=== PATIENT | male | born 1945 | race Caucasian/White ===

== ENCOUNTER 2016-07-03 14:19 | Emergency (ER) | payer OTHER ==
[2016-07-03 14:25] VITALS: PULSE 57; RESP 16; TEMP 97.5; O2SAT 98
[2016-07-03 14:27] VITALS: BP 156/76
--- NOTE | 2016-07-03 16:21 | UCPHY ---
H & P Time Seen by Provider: 07/03/16 15:47 Patient Type: New HPI/ROS: This patient struck his scalp against the edge of a cabinet at home shortly prior to arrival with the scalp wound. He denies any other complaints except skin pain. He describes moderate bleeding that slowed with direct pressure. ROS: He was not days. No LOC. No headache. No neck pain. No other injuries. He did not fall to the ground from the episode. 7 point ROS is otherwise negative. Past Medical/Surgical History: Dyslipidemia and BPH Smoking Status: Never smoked Physical Exam: Physical Exam Vital signs are normal. General: No acute distress HEENT: Atraumatic other than scalp lack. Eyes: Pupils equal and react to light. Extraocular motions are intact. Neck: No midline tenderness. He retains full range of motion of his neck without pain Lungs: No respiratory distress. Cardiac: Brisk capillary refill is intact throughout. Pulses are 2+ and symmetric in the affected extremity. Skin: There is a 3 cm laceration to the right parietal scalp region with no underlying bony step-off or hematoma. Subcutaneous tissues evident but no deeper structures are injured. No foreign bodies are present on direct examination. Neuro: GCS of 15. Constitutional: Initial Vital Signs Temperature (C) 36.4 C 07/03/16 14:20 Heart Rate 57 L 07/03/16 14:20 Respiratory Rate 16 07/03/16 14:20 Blood Pressure 156/76 H 07/03/16 14:20 O2 Sat (%) 98 07/03/16 14:20 O2 Delivery Mode Room Air Allergies/Adverse Reactions: azithromycin Allergy (Verified 07/03/16 14:26) moxifloxacin HCl [From Avelox] Allergy (Verified 07/03/16 14:26) Home Medications: Medication Instructions Recorded Aspirin 81mg (*) 07/03/16 Simvastatin 07/03/16 Tamsulosin HCl 07/03/16 MDM/Departure - MDM Procedures: Fidel: After verbal consent patient is treated with let solution initially followed by 1% plain lidocaine, 27 gauge needle-4 mL with good effect. Wound was scrubbed by our tech with baby shampoo and saline and then under sterile conditions using stapler place 6 fidel with good tissue approximation, hemostasis cosmesis. Patient tolerated this well. There were no complications. Medications Given: Discontinued Medications Diphtheria/Tetanus/Acell Pertussis (Boostrix) 0.5 ml IM .ONCE ONE Stop: 07/03/16 16:27 Last Admin: 07/03/16 16:27 Dose: 0.5 ml ED Course/Re-evaluation: Patient is counseled regarding wound care. Discussion: Scalp wound without evidence of significant head injury. Also no evidence of neck injury other complicating factors. - Depart Disposition: Home, Routine, Self-Care Clinical Impression: Scalp laceration Qualifiers: Encounter type: initial encounter Qualified Code(s): S01.01XA - Laceration without foreign body of scalp, initial encounter Condition: Good Instructions: Staple Care (ED) Additional Instructions: Diagnosis: Scalp laceration Plan: Keep the wound clean and dry for the next 2 days. Then clean daily with warm soapy water Return for staple removal in 7 days or so. Return sooner if he develops redness discharge or other concerns for infection. Go to the emergency department if he develops unbearable headache, confusion or other concerns. Referrals: Mikael Tovar MD [Primary Care Provider] - As per Instructions - PQRS PQRS Measurement: 134: Depression screening and followup, PRIME MD-PHQ2 (12 years and older) Over the last 2 weeks, how often have you been bothered by any of the following problems? 1. Feeling down, depressed, or hopeless? 2. Little interest or pleasure in doing things? Patient answered no to both 1 and 2 130: Documentation of medications. Reviewed all patient medications, doses, route and frequency. 226: Do you smoke? [No.] 47: 65 and older: Advanced care planning. Patient designates surrogate decision maker as spouse 51: 18 years old and older with diagnosis of COPD, spirometry performance. NA 52: 18 years old and older with COPD and symptoms of COPD or FEV1<60% predicted prescribed a B Agonist. NA
[2016-07-03] MEDS ORDERED: TDAP ADULT 0.5 ML INJ (BOOSTRIX) IM ONE (16:26)
== END 2016-07-03 16:44 | disposition home or self-care (01) ==
LOC: CED 14:19
PROC: 0HQ0XZZ Repair Scalp Skin, External Approach (ICD-10-PCS; principal; 2016-07-03)
DX: S01.01XA Laceration without foreign body of scalp, initial encounter (principal); Z23 Encounter for immunization; Y92.019 Unspecified place in single-family (private) house as the place of occurrence of the external cause; W22.03XA Walked into furniture, initial encounter
CPT/HCPCS: 12001; 90471; 90715; G0463; 12002-PO; 99203-PO

== ENCOUNTER → 2016-11-23 | Outpatient (CLI) | payer OTHER | LOC: EDSTATUS 10:28 → CIMAGING 10:28 | PROVIDERS: ATTEND Family Medicine | DX: M50.121 Cervical disc disorder at C4-C5 level with radiculopathy (principal); R20.0 Anesthesia of skin | CPT/HCPCS: 72040-PO ==

== ENCOUNTER → 2016-11-26 | Outpatient (CLI) | payer OTHER | LOC: FIMAGING 09:09 | PROVIDERS: ATTEND Family Medicine | DX: M47.812 Spondylosis without myelopathy or radiculopathy, cervical region (principal) ==

== ENCOUNTER 2016-11-30 21:27 | Emergency (ER) | payer OTHER ==
[2016-11-30] MEDS ORDERED: ASPIRIN 81 MG CHEWABLE TAB PO ONE (21:30)
--- NOTE | 2016-11-30 21:38 | CPEKG ---
Heart Rate: 56 RR Interval: 1071 P-R Interval: 208 QRSD Interval: 84 QT Interval: 424 QTC Interval: 410 P [place]: 57 QRS [place]: 45 T Wave [place]: 18 EKG Severity - NORMAL ECG - EKG Impression: SINUS RHYTHM Electronically Signed By: Kaiser Rivas 30-Nov-2016 22:58:32
[2016-11-30 21:46] VITALS: RESP 14; TEMP 98.2
[2016-11-30 21:46] LABS: % IMMATURE GRANULYOCYTES 0.4 % (0.0-1.1); ABSOLUTE IMMATURE GRANULOCYTES 0.03 10^3/uL (0.00-0.10); ADD DIFF? NO; ADD MORPH? NO; ADD SCAN? NO; ATYPICAL LYMPHOCYTE FLAG 20 (0-99); FRAGMENT RBC FLAG 0 (0-99); HEMATOCRIT 43.6 % (40.0-51.0); HEMOGLOBIN 14.6 g/dL (13.7-17.5); LEFT SHIFT FLG 0 (0-99); LIPEMIA HEMOLYSIS FLAG 80 (0-99); MEAN CELL HEMOGLOBIN 31.8 pg (27.9-34.1); MEAN CELL HEMOGLOBIN CONCENTR. 33.5 g/dL (32.4-36.7); MEAN PLATELET VOLUME 9.6 fL (8.7-11.7); PLATELET CLUMPS FLAG 0 (0-99); PLATELET COUNT 264 10^3/uL (150-400); RED BLOOD CELL COUNT 4.59 10^6/uL (4.40-6.38); RED CELL DISTRIBUTION WIDTH 13.3 % (11.5-15.2)
[2016-11-30 22:03] LABS: ANION GAP 12 mEq/L (8-16); CALCIUM 8.9 mg/dL (8.5-10.4); CARBON DIOXIDE 26 mEq/l (22-31); CHLORIDE 103 mEq/L (97-110); CREATININE 0.9 mg/dL (0.7-1.3); GLOMERULAR FILTRATION RATE > 60; GLUCOSE 119 mg/dL (70-100); POTASSIUM 4.1 mEq/L (3.5-5.2); SODIUM 141 mEq/L (134-144)
[2016-11-30 22:08] LABS: TROPONIN I < 0.012 ng/mL (0-0.034)
--- NOTE | 2016-11-30 22:29 | EDPHY ---
H & P Time Seen by Provider: 11/30/16 21:30 HPI/ROS: This patient reports left anterior chest pain that started 1 hour prior to arrival is described as achy and he has chest wall tenderness that reproduces the symptoms. He points of 2 fingers to the affected area which is around 6 to 7th rib region just left of the sternum. He notes no exacerbating factors and the pain intensity peak for of 10 but has now resolved. He does not recall having this discomfort before. And did not worsen with exertion. He had no other associated symptoms. He does report occasional dry coughs the common "fits". however his reports that she is not heard him cough all day today. She does recall any recent coughing. He notes no other associated symptoms. ROS: No fevers or chills. No significant fatigue. No other constitutional symptoms HEENT: No coryza. No sore throat. No other complaints Neuro: No headache. No numbness tingling or weakness. Pulmonary: No pleuritic pain. No dyspnea. No wheezing. He does report that he had bronchitis 2 years ago while living in [place] was prescribed albuterol inhaler for that episode. He has occasionally tried the albuterol here when he feels slightly short of breath but is not sure if he has any wheezing. He also reports he has not had any significant shortness of breath recently. Cardiovascular: No heart palpitations. No lower extremity swelling. No calf pain. No significant dyspnea on exertion. No paroxysmal nocturnal dyspnea. GI: No nausea vomiting. Endocrine: He reports that he is drinking more fluids because the hot weather but denies polyuria, blurred vision or other endocrine symptoms. No diaphoresis. Integumentary: No skin rash complete review of symptoms is otherwise negative Source: Patient Exam Limitations: No limitations - Personal History Current Tetanus Diphtheria and Acellular Pertussis (TDAP): Yes - Medical/Surgical History PMH: dyslipidemia on simvastatin Benign prostatic hypertrophy the patient had negative cardiac stress testing while in [place] but is not recall many years ago that testing occurred. Hx Asthma: Yes Hx Chronic Respiratory Disease: No Hx Diabetes: No Hx Cardiac Disease: No Hx Renal Disease: No Hx Cirrhosis: No Hx Alcoholism: No Hx HIV/AIDS: No Hx Splenectomy or Spleen Trauma: No Other PMH: APPENDECTOMY,high cholesterol,prostate problems,asthma - Family History Significant Family History: Heart disease ( his father had an AR at age 59) - Social History Smoking Status: Never smoked Alcohol Use: Rarely Drug Use: None Additional Social History: Patient & his moved to [place] urine half ago from [place] - Physical Exam Exam: Pleasant 71-year-old male appears younger than his stated age vital signs are normal General Appearance: Alert, no distress. Eyes: Pupils equal and round no pallor or injection. ENT, Mouth: Mucous membranes moist. Respiratory: There are no retractions, lungs are clear to auscultation. patient has anterior chest wall pain that seems to reproduces symptoms with no skin abnormalities at this site and no rib crepitance Cardiovascular: Regular rate and rhythm. no murmur gallop rub. No JVD. No peripheral edema no calf swelling or tenderness. Gastrointestinal: Abdomen is soft and nontender, no masses, bowel sounds normal. Neurological: GCS 15 without deficits. Skin: Warm and dry, no rashes. Musculoskeletal: Neck is supple nontender. Extremities are symmetrical, full range of motion. Psychiatric: Mood and affect are normal DIFFERENTIAL DIAGNOSIS: After history and physical exam differential diagnosis was considered for costochondritis, chest wall injury, coronary syndrome, PE, pneumonia, pneumothorax, reactive airway disease, bronchitis Constitutional: Initial Vital Signs Temperature (C) 36.8 C 11/30/16 21:42 Heart Rate 58 L 11/30/16 21:42 Respiratory Rate 14 11/30/16 21:42 Blood Pressure 152/77 H 11/30/16 21:42 O2 Sat (%) 96 11/30/16 21:42 O2 Delivery Mode Room Air Allergies/Adverse Reactions: azithromycin Allergy (Verified 11/30/16 21:39) moxifloxacin HCl [From Avelox] Allergy (Verified 11/30/16 21:39) Home Medications: Medication Instructions Recorded Aspirin 81mg (*) 07/03/16 Simvastatin 07/03/16 Tamsulosin HCl 07/03/16 Flonase Nasal [place] 11/30/16 Proair Hfa 11/30/16 Medical Decision Making - Diagnostics EKG Interpretation: 12 lead EKG performed shortly after arrival at 9:36 p.m. reveals sinus rhythm at 56 Intervals: Normal throughout [place]: Normal throughout ST segments: Normal throughout Overall assessment: normal EKG Imaging Results: Imaging Impressions Chest X-Ray 11/30/16 22:03 Impression: Nothing acute identified. chest x-ray: Normal by my interpretation except minimal spinal DJD Imaging: I viewed and interpreted images myself ED Course/Re-evaluation: monitor, aspirin 324 Patient remained stable without chest pain while here and no further symptoms while here. patient's peak flow was 580 with predicted of 550. because the patient's pain resolved he declined any analgesics while here. discussion: Patient presents with chest pain I think is chest wall and etiology. While he has cardiac risk factors of family history and dyslipidemia , he has a a entirely normal EKG and troponin with no classic cardiac symptoms. His chest wall pain is reproducible on exam. With a negative D-dimer and no risk factors or other clinical findings that are not think he has a PE. No evidence of pneumonia on chest x-ray or pneumothorax or lesions. Given a peak flow greater than predicted of not think that he has bronchitis or significant airway disease. I counseled him regarding this. Given his cardiac risk factors I did suggest follow up with Dr. Quintanilla our on- call worm packer for further evaluation as an outpatient. He understands the need to return emergency department should he developed any significant recurrence of his chest pain despite the treatment plan, onset of shortness of breath or other new symptoms. - Data Points Laboratory Results: Laboratory Results 11/30/16 21:42 11/30/16 21:42 11/30/16 11/30/16 11/30/16 21:42 21:42 21:42 WBC 6.94 10^3/uL 10^3/uL (3.80-9.50) RBC 4.59 10^6/uL 10^6/uL (4.40-6.38) Hgb 14.6 g/dL g/dL (13.7-17.5) Hct 43.6 % % (40.0-51.0) MCV 95.0 fL fL (81.5-99.8) MCH 31.8 pg pg (27.9-34.1) MCHC 33.5 g/dL g/dL (32.4-36.7) RDW 13.3 % % (11.5-15.2) Plt Count 264 10^3/uL 10^3/uL (150-400) MPV 9.6 fL fL (8.7-11.7) Neut % (Auto) 54.0 % % (39.3-74.2) Lymph % (Auto) 32.4 % % (15.0-45.0) [place] % (Auto) 11.2 % % (4.5-13.0) Eos % (Auto) 1.4 % % (0.6-7.6) Baso % (Auto) 0.6 % % (0.3-1.7) Nucleat RBC Rel Count 0.0 % % (0.0-0.2) Absolute Neuts (auto) 3.74 10^3/uL 10^3/uL (1.70-6.50) Absolute Lymphs (auto) 2.25 10^3/uL 10^3/uL (1.00-3.00) Absolute Monos (auto) 0.78 10^3/uL 10^3/uL (0.30-0.80) Absolute Eos (auto) 0.10 10^3/uL 10^3/uL (0.03-0.40) Absolute Basos (auto) 0.04 10^3/uL 10^3/uL (0.02-0.10) Absolute Nucleated RBC 0.00 10^3/uL 10^3/uL (0-0.01) Immature Gran % 0.4 % % (0.0-1.1) Immature Gran # 0.03 10^3/uL 10^3/uL (0.00-0.10) D-Dimer < 0.27 ug/mLFEU ug/mLFEU (0.00-0.50) Sodium 141 mEq/L mEq/L (134-144) Potassium 4.1 mEq/L mEq/L (3.5-5.2) Chloride 103 mEq/L mEq/L (97-110) Carbon Dioxide 26 mEq/l mEq/l (22-31) Anion Gap 12 mEq/L mEq/L (8-16) BUN 21 mg/dL mg/dL (7-23) Creatinine 0.9 mg/dL mg/dL (0.7-1.3) Estimated GFR > 60 Glucose 119 mg/dL H mg/dL (70-100) Calcium 8.9 mg/dL mg/dL (8.5-10.4) Troponin I < 0.012 ng/mL ng/mL (0-0.034) Medications Given: Discontinued Medications Aspirin (Aspirin) 324 mg PO EDNOW ONE Stop: 11/30/16 21:31 Last Admin: 11/30/16 21:49 Dose: 324 mg Departure - Departure Disposition: Home, Routine, Self-Care Clinical Impression: Chest wall pain Condition: Good Instructions: Chest Wall Pain (ED) Additional Instructions: Diagnosis: Chest wall pain Your EKG, labs and chest x-ray tonight are normal. With you pain and tenderness to the chest wall this seems to be musculoskeletal source of pain - this may be costochondritis -inflammation of the cartilage Plan: Ibuprofen and Tylenol for discomfort if needed Given yourr family history of a father with heart attack, although today's pain seems to occur be from her chest wall, you should follow up with Cardiology for further evaluation. Return to the emergency department if he have any significant worsening despite the treatment plan. Referrals: Mikael Tovar MD [Primary Care Provider] - As per Instructions Gen Quintanilla MD [Medical Doctor] - As per Instructions
[2016-11-30 22:45] VITALS: BP 109/63; PULSE 64; O2SAT 95
== END 2016-11-30 22:43 | disposition home or self-care (01) ==
LOC: CED 21:27
DX: R07.89 Other chest pain (principal); J45.909 Unspecified asthma, uncomplicated; Z79.82 Long term (current) use of aspirin
CPT/HCPCS: 71020-PO; 80048-PO; 84484-PO; 85025-PO; 85378-PO

== ENCOUNTER 2016-12-03 00:46 | Observation (INO) | payer OTHER ==
--- NOTE | 2016-12-03 01:00 | CPEKG ---
Heart Rate: 53 RR Interval: 1132 P-R Interval: 228 QRSD Interval: 76 QT Interval: 428 QTC Interval: 402 P [place]: 45 QRS [place]: 22 T Wave [place]: 11 EKG Severity - ABNORMAL ECG - EKG Impression: SINUS RHYTHM EKG Impression: FIRST DEGREE AV BLOCK EKG Impression: essentially unchanged from EKG performed approximately 51 hours ago Electronically Signed By: Des Odom 03-Dec-2016 01:39:15
--- NOTE | 2016-12-03 01:20 | EDPHY ---
H & P Time Seen by Provider: 12/03/16 00:49 HPI/ROS: CHIEF COMPLAINT: left biceps pressure sensation at 9:30 p.m. HISTORY OF PRESENT ILLNESS: this is a 71-year-old male who while watching TV developed a pressure sensation at 9:30 p.m.. It persisted until when he got here at approximately 12:45 am. His did have an take 324 mg of aspirin before the house. He is currently taking aspirin 81 mg daily. Was sitting at home when it started, nothing untoward such as a scary movie or anything alarming happen TV. The discomfort persisted. He attempted to go back to lay down to go to sleep as he had had several this week regarding his symptomatology-see below. As a consequence he would lay on his left right without any provocation or worsening of the discomfort. Nonetheless he could not sleep as he was worried about a thus he came in for evaluation. Approximately 5 days ago was seen by his PCP for tingling in the last 3 fingers of his left hand, digits 3. Four in 5. He had a plain film of the neck followed by a MRI. This showed some foraminal narrowing but no actual disc disease. Thus he was referred physical therapy. However after 2 days the left hand tingling left. At 2 days ago he was seen here in the evening on November 30. At that time he had pain in the left chest. It was noted that he had discomfort to palpation of the left costal margin and reproduce the discomfort. He has testing which included a negative troponin, negative D-dimer and negative chest x-ray. He subsequently was released. He noted the chest discomfort did not occur any longer over the ensuing 2 days. This morning, December 02 he was seen by the family physician. My review of the clinical presentation 2 days ago was done and felt to suggest indeed was costochondral discomfort and he was sent home. He had the symptoms as noted above thus he came in P: Onset while watching TV. Not worse with lying on his side Q: Pressure feeling R: Left biceps without radiation S: Mild to moderate T: Onset at 9:30 p.m. 4 hours ago He had no associated symptoms such as diaphoresis, nausea, shortness of breath, pleuritic pain, or difficulty breathing. PE/DVT risk factors: None Cardiac risk factors include: early-onset coronary disease in his father who age 59 as well as elevated cholesterol currently, on treatment. He has never smoked No diabetes No hypertension He mentions having had several stress tests in the past. I suspect this is due to family history of early-onset an early conduct cardiac with his father approximately 1979 however, no post was done REVIEW OF SYSTEMS: Constitutional: No fever, no chills. Eyes: No blurring ENT: No sore throat. Cardiovascular: See above Respiratory: See above Gastrointestinal: No nausea vomiting or diarrhea. No abdominal pain. Genitourinary: No hematuria or frequency. Musculoskeletal: No back pain. Skin: No rashes. Neurological: No headache. 10 point ROS otherwise negative Source: Patient Exam Limitations: No limitations - Medical/Surgical History Hx Asthma: Yes Hx Chronic Respiratory Disease: No Hx Diabetes: No Hx Cardiac Disease: No Hx Renal Disease: No Hx Cirrhosis: No Hx Alcoholism: No Hx HIV/AIDS: No Hx Splenectomy or Spleen Trauma: No Other PMH: APPENDECTOMY,high cholesterol,prostate problems,asthma - Family History Significant Family History: Heart disease (Father age 59 in approximately 1979, assumed to be cardiac related) - Social History Smoking Status: Never smoked Alcohol Use: None Drug Use: None - Physical Exam Exam: General Appearance: Alert, no distress. Afebrile. Normal phonation. No respiratory distress. Eyes: Pupils equal and round no pallor or injection. No icterus ENT, Mouth: Mucous membranes moist. Pharynx without erythema or exudate. TM Clear. Neck: No adenopathy. Supple. No JVD. Trachea in midline. Respiratory: There are no retractions, lungs are clear to auscultation. Chest wall: Nontender to palpation. No crepitus. Cardiovascular: Regular rate and rhythm. Abdomen: Soft and nontender, no masses, bowel sounds normal. Femoral pulses equal. Neurological: Ox3. No motor weakness. Sensation intact. Gait nl. Negative Spurling's exam. Negative symptomatology with axial load. No signs of focal motor weakness. Reflexes are symmetrical at 2+ Triceps, 2+ biceps Skin: Warm and dry, no rashes. Musculoskeletal: No joint swelling. Extremities: No edema. Homans sign negative. No cords. Psychiatric: Normal affect. Patient is oriented X 3, there is no agitation Constitutional: Initial Vital Signs Temperature (C) 36.4 C 12/03/16 00:52 Heart Rate 54 L 12/03/16 00:52 Respiratory Rate 18 12/03/16 00:52 Blood Pressure 146/74 H 12/03/16 00:52 O2 Sat (%) 96 12/03/16 00:52 O2 Delivery Mode Room Air Allergies/Adverse Reactions: azithromycin Allergy (Verified 11/30/16 21:39) moxifloxacin HCl [From Avelox] Allergy (Verified 11/30/16 21:39) Home Medications: Medication Instructions Recorded Aspirin 81mg (*) 07/03/16 Simvastatin 07/03/16 Tamsulosin HCl 07/03/16 Flonase Nasal [place] 11/30/16 Proair Hfa 11/30/16 Medical Decision Making - Diagnostics EKG Interpretation: EKG: Interpreted by me contemporaneously. Normal sinus rhythm. Heart rate 53, second degree block QTc 402 Q waves none QRS: normal STT segment: normal T Waves: Normal Summary: first-degree block with no ischemic findings. Sinus rhythm Unchanged when compared to EKG from November 30, 2 days ago. ED Course/Re-evaluation: He was already on aspirin additional high dose prior to arrival. His symptoms had resolved by the time I evaluated him. This orellana his 3rd visit to health care this week for symptoms related to arm or chest symptomatology. Thereby I consulted hospitalist at [facility] for consideration of admission. Laboratory results from 2 nights ago including the negative troponin and D- dimer reviewed Chest films reviewed on [employer] system from 2 nights ago. Normal aortic arch with crisp silhouette and aortic knob. Normal mediastinum. Initial troponin here in the ED was negative at undetectable. Patient remained asymptomatic. Case reviewed with Dr. Pierce, hospitalist harvest contractor. Patient will be transferred via ambulance to the PCU at [facility] with consideration for stress testing tomorrow morning. Differential Diagnosis: Differential diagnosis includes but is not limited to the following: ACS, myocardial infarction, pneumothorax, pleurisy, pulmonary embolus, aortic dissection, anxiety, muscle strain. Clinical exam does not support any etiology of cervical disc radiculopathy for his symptoms. His Spurling exam is negative as well as axial loading. While he is more tender to the left pectoral region than on the right it is interesting however the last 48 hours he has had no pain whatsoever when lying on right than left. His aortic shadow and lack of risk factors suggest that this is not aortic dissection. Negative D-dimer and lack of clinical findings risk factors suggest no PE or DVT here. I am a little concerned when he tells me that he no longer mows the lawn as he gets so fatigued. Evidently has been going on for some time. Thus given his range of symptoms in the course of the last week with recurrent visits, I recommend hospitalization for stress testing. - Data Points Laboratory Results: 12/03/16 01:05 Troponin I < 0.012 ng/mL ng/mL (0-0.034) Medications Given: Discontinued Medications Aspirin (Aspirin) 324 mg PO EDNOW ONE Stop: 12/03/16 01:28 Last Admin: 12/03/16 01:33 Dose: Not Given Departure - Departure Disposition: [facility]
[2016-12-03] MEDS ORDERED: ASPIRIN 81 MG CHEWABLE TAB PO ONE (01:27)
[2016-12-03] MEDS ORDERED: ACETAMINOPHEN 325 MG TAB PO PRN (04:20)
[2016-12-03] MEDS ORDERED: ONDANSETRON DISINTEGRATING 4 MG TAB PO PRN (04:20)
[2016-12-03] MEDS ORDERED: IBUPROFEN 200 MG TAB PO PRN (04:20)
[2016-12-03] MEDS ORDERED: NITROGLYCERIN 0.4 MG BTL SL PRN (04:24)
--- NOTE | 2016-12-03 04:28 | PDGENHP ---
History and Physical - Chief Complaint chest pain - History of Present Illness 71 yo male with h/o hyperlipidemia and family history of premature heart disease presented to ED with chest pain. This is his 3rd visit this week for chest pain or arm pain symptoms. He had a limited work up a few days ago with a negative troponin and a normal EKG. At that time, his chest pain was found to be reproducible on palpation and he was diagnosed with costochondritis. 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 He underwent xray and MRI of his neck, which revealed some spondylosis. He has no radicular symptoms at this time. He is currently chest pain free. His chest symptoms occurred at rest and he described it as a dull ache. No radiation. No associated N/V, SOB or diaphoresis. His father in his 50's of an NV. Given his recurrent symptoms, he is admitted for further evaluation. History Information - Allergies/Home Medication List Allergies/Adverse Reactions: azithromycin Allergy (Verified 11/30/16 21:39) moxifloxacin HCl [From Avelox] Allergy (Verified 11/30/16 21:39) Home Medications: Aspirin 81mg (*) 07/03/16 [Last Taken Unknown] Simvastatin 07/03/16 [Last Taken Unknown] Tamsulosin HCl 07/03/16 [Last Taken Unknown] Flonase Nasal [place] 11/30/16 [Last Taken Unknown] Proair Hfa 11/30/16 [Last Taken Unknown] I have personally reviewed and updated: family history, medical history, social history, surgical history - Past Medical History hyperlipidemia - Surgical History Reports: no pertinent surgical hx - Family History Positive for: father with history of CAD younger than 55 Additional family history: father of NV in his 50's - Social History Smoking Status: Never smoked Alcohol Use: None Drug Use: None Review of Systems ROS: 10pt was reviewed & negative except for what was stated in HPI & below Physical Exam Temp Pulse Resp BP Pulse Ox 36.4 C 57 L 17 118/75 94 12/03/16 00:52 12/03/16 03:32 12/03/16 03:32 12/03/16 03:32 12/03/16 03:32 Constitutional: no apparent distress Eyes: PERRL Ears, Nose, Mouth, Throat: moist mucous membranes Cardiovascular: regular rate and rhythym, no murmur, rub, or gallop Respiratory: no respiratory distress, clear to auscultation Gastrointestinal: normoactive bowel sounds, soft, non-tender abdomen Skin: warm Musculoskeletal: full muscle strength Neurologic: AAOx3 Psychiatric: interacting appropriately Lab Data & Imaging Review Troponin I < 0.012 ng/mL (0-0.034) 12/03/16 01:05 Visualized and Interpreted Chest x-ray results: Yes Chest X-Ray results: no infiltrate Visualized and Interpreted EKG results: Yes EKG Interpretation: Positive for: normal sinsus rhythm Assessment & Plan Assessment: Atypical chest pain - doubt cardiac etiology. Negative d dimer 11/30. Initial trop negative. EKG is normal. Cardiac risk factors include hyperlipidemia and family h/o PHD. -Admit to tele -trend troponin -cont daily asa, statin -exercise treadmill stress test in am if trops neg Hyperlipidemia - cont statin when med rec completed Cervical spine DDD with radiculopathy - This likely explains his left arm and hand symptoms. I reviewed his MRI from 11/26. He is receiving outpt treatment for this and plans to start PT. -consider trial of neurontin Full code Dispo - obs
--- NOTE | 2016-12-03 06:20 | CPEKG ---
Heart Rate: 54 RR Interval: 1111 P-R Interval: 224 QRSD Interval: 78 QT Interval: 428 QTC Interval: 406 P [place]: 51 QRS [place]: 54 T Wave [place]: 17 EKG Severity - ABNORMAL ECG - EKG Impression: SINUS RHYTHM EKG Impression: FIRST DEGREE AV BLOCK Electronically Signed By: Nelia Ibanez 05-Dec-2016 05:28:19
[2016-12-03 07:20] LABS: CHOLESTEROL 135 mg/dL (140-220); HIGH DENSITY LIPOPROTEIN 54 mg/dL (40-65); LDL/HDL RATIO 1.31 RATIO (1.00-3.64); LOW DENSITY LIPOPROTEIN 71 mg/dL (80-100); NON-HIGH DENSITY LIPOPROTEIN 81 mg/dL (90-129); TRIGLYCERIDE 54 mg/dL (40-150); VERY LOW DENSITY LIPOPROTEINS 10 mg/dL (8-25)
[2016-12-03 07:32] LABS: TROPONIN I < 0.012 ng/mL (0-0.034)
[2016-12-03] MEDS ORDERED: ASPIRIN 81 MG CHEWABLE TAB PO SCH ×2 (09:00→21:00)
--- NOTE | 2016-12-03 12:25 | CPR ---
[f rep st] NONINVASIVE CARDIAC PROCEDURE REPORT DATE OF PROCEDURE: 12/03/2016 PROCEDURE: Exercise treadmill test. INDICATION: Dmitry is a 71-year-old male, who presented to the hospital with chest discomfort. He was ruled out for NJ with serial troponins and discharged home. Two days later he developed pressure in his left arm and, therefore proceeded back to the hospital. His risk factors for coronary artery disease include dyslipidemia. He also has a family history of coronary artery disease with his father having a fatal NJ at the age of 59. PROCEDURE: Consent was obtained and the patient was placed on continuous telemetry. His resting EKG reveals normal sinus rhythm with heart rate of 73, SC interval 183 and a QRS duration of 93. His QTc is within normal limits at 425. He has a nonischemic EKG. The patient exercised on the treadmill for 7 minutes and 45 seconds without any associated symptoms of chest discomfort. The exercise portion of the study was discontinued secondary to maximal effort. His heart rate peaked at 96 beats per minute which was shy of his target heart rate which was 126. He remained in normal sinus rhythm throughout the study. There were no ST-T wave changes to suggest ischemia. PLAN: The patient walked on the treadmill for 7 minutes and 45 seconds without any associated symptoms. Unfortunately, he was unable to reach his target heart rate despite maximal effort. I think this represents chronotropic incompetence, not necessarily coronary artery disease. If coronary artery disease is suspected consider a more sophisticated study such as a nuclear stress test. The patient should be monitored on an annual basis with EKG's because of his fairly prominent chronotropic incompetence. /[id number]/MODL MTDD
[2016-12-03] MEDS ORDERED: ALBUTEROL HFA ANES ONLY 200 PUFFS/8.5 GM MDI IH PRN (15:08)
[2016-12-03] MEDS ORDERED: FLUTICASONE NASAL 120 SPRAYS/16 GM MDI EACHNARE PRN (15:08)
[2016-12-03 15:17] VITALS: BP 143/70; PULSE 54; RESP 18; TEMP 97.9; O2SAT 94
[2016-12-03] MEDS ORDERED: ALBUTEROL 200 PUFFS/18 GM MDI IH PRN (15:31)
--- NOTE | 2016-12-03 18:03 | PDDCSUM ---
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 This is been present for more than a week and is continuously present. There is no exertional chest discomfort nothing that sounds like angina or PE. He had no respiratory or cardiac symptoms otherwise, no fever or cough. He has no findings on EKG or chest x-ray to indicate any internal cause of chest discomfort and has 3-troponins. He walks on treadmill for 7-1/2 minutes with no symptoms and no EKG changes although his heart rate was not at his ideal range for this test. The patient is felt to be very low risk of cardiac events in the near future. He is discharged home at this time to follow up with his primary care physician and also he does have an appoint with Dr. Quintanilla in 2 weeks. He is advised of the potential for false negative results in our Cardiac evaluations here and if he has anything that concerns him for possible cardiac symptomatology will seek appropriate attention. PENDING TEST RESULTS: None MEDICATION CHANGES: None FOLLOW-UP PLAN: Primary care next week Dr. Quintanilla in 2 weeks He also has an appointment to see a therapist about his cervical spine disease Greater than 35 minutes bedside and care coordination time today
[2016-12-03] MEDS ORDERED: NON-FORMULARY NEW DRUG (Simvastatin [Zocor] 20 MG) PO SCH (21:00)
[2016-12-03] MEDS ORDERED: ATORVASTATIN CALCIUM 10 MG TAB PO SCH (21:00)
[2016-12-04] MEDS ORDERED: TAMSULOSIN HCL 0.4 MG CAP PO SCH (09:00)
== END 2016-12-03 15:36 | disposition home or self-care (01) ==
LOC: CED 00:46 → CEDHOLD 02:05 → F2W 04:00
PROVIDERS: ADMIT Hospitalist; ATTEND Internal Medicine
DX: R07.89 Other chest pain (principal); M50.10 Cervical disc disorder with radiculopathy, unspecified cervical region; E78.5 Hyperlipidemia, unspecified; Z82.49 Family history of ischemic heart disease and other diseases of the circulatory system; Z79.82 Long term (current) use of aspirin
CPT/HCPCS: 93005; 93017; G0378; 84484-PO

== ENCOUNTER 2017-01-03 14:37 | Inpatient (IN) | payer OTHER ==
[2017-01-03] MEDS ORDERED: ALBUTEROL 200 PUFFS/18 GM MDI IH PRN (17:02)
[2017-01-03] MEDS ORDERED: FLUTICASONE NASAL 120 SPRAYS/16 GM MDI EACHNARE PRN (17:02)
--- NOTE | 2017-01-03 17:02 | PDOREHIP ---
Admission [facility] - Admission - 3 Day Assessment Period Admission Date/Day 1: 01/03/17 Day 2: 01/04/17 Day 3: 01/05/17 - Active Diagnoses Comorbidities and Co-existing Conditions at Admission: 82440. None of the Above - Skin Conditions Unhealed Pressure Ulcer (1 or more/Stage 1 or >)-Admission: 0. No
[2017-01-03] MEDS ORDERED: NON-FORMULARY NEW DRUG (Levetiracetam [Keppra] 750 MG) PO SCH (17:15)
--- NOTE | 2017-01-03 17:44 | GHP ---
[f rep st] HISTORY AND PHYSICAL POST ADMISSION PHYSICIAN EVALUATION AND REHABILITATION TREATMENT PLAN DATE OF ADMISSION: 01/03/2017 DATE OF EVALUATION: 01/03/2017 TIME OF EVALUATION: 1625 REFERRING FACILITY: [facility]. IMPAIRMENT GROUP: 2.9 DATE OF ONSET: 12/27/2016 REFERRING PHYSICIAN: Dr. Jama. CONSULTING PHYSICIANS: He had consultation with the Neurosurgery service and with Hematology/Oncology. Neurosurgery was Dr. Johnson. Heme-Onc was Dr. Valladares. REHABILITATION DIAGNOSIS: Craniotomy and excision of right parietal mass with left-sided weakness. ETIOLOGIC DIAGNOSIS: Other, brain. DATE OF SURGERY: 12/27/2016 HISTORY OF PRESENT ILLNESS: This patient was admitted 12/27/2016 to the [facility] with a chief complaint of left-sided weakness. Left hand weakness had occurred about 2 weeks before, and then he had gradual development of his left leg dragging. On 12/27/2016 he was unable to get up without assistance, so he came to the emergency department. Brain imaging showed a mass in the right parietal region. He underwent surgery with excision of a right parietal mass and pathology was consistent with glioblastoma multiforme grade 4. He came through surgery well with minimal complications, was participating in therapies, and was appropriate for inpatient rehabilitation. STUDIES AND LABORATORIES IN THE HOSPITAL: MRI showed 5.4 x 4.6 x 5.1 irregular peripherally enhancing mass in the right parietal lobe, and there was an additional small focus of enhancing tumor in the posterior right temporal lobe. Post surgically on 12/31, he had a repeat MRI which showed postoperative change. The right temporal mass was still shown. There was a decrease in leftward midline shift and minimal intraventricular extension of hemorrhage compatible with recent surgery. There were no results within the past 72 hours for a BMP, CBC, cholesterol panel, coagulation panel, or troponin I. PRECAUTIONS: He is a fall risk. He has aspiration precautions and seizure precautions. ACTIVE COMORBIDITIES: He has no active tier 1 or tier 2 comorbidities. He has +/- hemiparesis, a tier 3 comorbidity, though his deficit appears to be more ataxia than loss of strength. PAST MEDICAL HISTORY: 1. Benign prostatic hypertrophy. 2. Dyslipidemia. 3. Appendicitis. PAST SURGICAL HISTORY: He has had an appendectomy. PRE-HOSPITAL MEDICATIONS: 1. Simvastatin. 2. Tamsulosin. 3. Aspirin. ADMISSION MEDICATIONS: 1. Albuterol 1 puff daily p.r.n. 2. Aspirin 81 mg p.o. at bedtime. 3. Fluticasone 1 spray nasal daily p.r.n. 4. Simvastatin 20 mg p.o. at bedtime. 5. Tamsulosin 0.4 mg p.o. daily. ALLERGIES: Listed to azithromycin and moxifloxacin. FAMILY HISTORY: Noncontributory. 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 He lives with his . There are 3 platform steps to enter, and once he has entered he can live on 1 level. He is a nonsmoker and uses occasional alcohol. There is a local son who is involved. REVIEW OF SYSTEMS: He complains of right upper quadrant abdominal pain, and gas. He has had no nausea, vomiting, constipation, or diarrhea. His appetite is not great but not absent. He otherwise is not in pain. There is no headache and no incisional pain. He denies any numbness. He has largely regained strength in the left upper and lower extremities but he reports that the left arm is "floppy." He denies cough or dyspnea, chest pain, palpitations, dysuria or urinary frequency, joint pain or joint swelling, skin rash or skin breakdown. Regarding his mental state, he says he is "taking 1 day at a time." PHYSICAL EXAMINATION: VITAL SIGNS: Not yet available in the chart. GENERAL: This is a well-nourished, well-developed man, appears his chronologic age, cooperative, and in no acute distress. HEENT: Extraocular movements are intact. Pupils are equal, round, and reactive to light. Mucous membranes are moist. Dentition is in good condition. He has an uncrowded airway. There is no posterior oropharyngeal mucus. NECK: Supple. HEART: There is regular rate and rhythm with no murmurs, rubs, or gallops. LUNGS: Clear to auscultation bilaterally. ABDOMEN: Soft, nontender, nondistended with normoactive bowel sounds and no hepatosplenomegaly. No palpable bladder. EXTREMITIES: There is no cyanosis, clubbing, or edema. Radial and dorsalis pedis pulses are 2+ bilaterally. NEUROLOGIC: He is alert and oriented x3. Cranial nerves 2-12 are grossly intact. He has 4+/5 strength in the left biceps and triceps, otherwise his motor strength is 5/5 overall. Sensation is intact to light touch. There is no extinction to double simultaneous stimulation. Visual wagner are full by confrontation. He has pronator drift on the left. Afijam-ak-drux is normal on the right and shows ataxia with some past pointing and unsteady movement on the left. SKIN: He has a well- approximated craniotomy incision on his right parietal scalp with no dehiscence , erythema or drainage. PSYCHIATRIC: He is emotionally labile. IMPRESSION: This patient is an otherwise healthy 71-year-old man, who is now status post craniotomy and excision of a right parietal glioblastoma multiforme. He has come through surgery well with no complications, and he has had some recovery of his motor function. He is appropriate for inpatient rehabilitation where he will benefit from physical therapy, occupational therapy , and speech and language pathology to optimize mobility, activities of daily living, and cognition. He will benefit from nursing care regarding wound healing, skin integrity, bowel and bladder, medication administration, and medication education. He will benefit care of a physician regarding risk for neurologic deterioration, seizure risk, and management of comorbid conditions. His goal is to complete a rehabilitation stay and then return home with his family for a safe discharge, as it is expected he will achieve modified independence with mobility, activities of daily living, and cognition. He and his family will have medication education and neurologic education. His incision will be healing well. There will be family training. He will have therapy with physical therapy, occupational therapy, and speech and language pathology for 45-60 minutes per day per discipline on 5-7 days of the week. His expected duration of stay is 12-14 days. It is anticipated that upon discharge he will continue to benefit from home health services, including speech and language pathology, occupational therapy, physical therapy, and a brain injury support group. ASSESSMENT AND PLAN: 1. Status post excision of glioblastoma multiforme from the right parietal lobe. Physical therapy and occupational therapy to optimize mobility and activities of daily living. 2. Possible cognitive effects of surgery. Speech and language pathology to assess and treat. 3. Postsurgical seizure risk. Continue dexamethasone to reduce any brain edema and continue levetiracetam. Duration of levetiracetam will be discussed further with Neurosurgery. 4. Abdominal discomfort. Ensure normal bowel movements. Observe for evolution or resolution, and observe oral intake. 5. Dyslipidemia. Continue simvastatin. 6. Benign prostatic hypertrophy. Continue tamsulosin. 7. Emotional lability, likely adjustment disorder. Discussed low threshold for provision of antidepressants. Observe for better night sleep, and he will have evaluation and treatment per GARMENT MANUFACTURER on the unit. FOLLOWUP: He is to see neurosurgeon, Dr. Jonas, within 1 week. Indications for this visit will be discussed with Dr. Jonas, and likely he will be scheduled for after he leaves inpatient rehabilitation. He is to see oncologist , Dr. Heraclio Valladares, within 2 weeks. His primary care provider is Dr. Mikael Tovar. /[id number]/MODL MTDD
[2017-01-03] MEDS: levETIRAcetam 250 MG TAB PO SCH (20:51)
[2017-01-03] MEDS: DEXAMETHASONE 2 MG TAB PO SCH (20:52)
[2017-01-03] MEDS: ATORVASTATIN CALCIUM 10 MG TAB PO SCH (20:52)
[2017-01-03] MEDS ORDERED: NON-FORMULARY NEW DRUG (Simvastatin [Zocor] 20 MG) PO SCH (21:00)
[2017-01-04] MEDS: oxyCODONE IR 5 MG TAB PO PRN (06:09)
[2017-01-04 07:28] LABS: % IMMATURE GRANULYOCYTES 1.5 % (0.0-1.1); ABSOLUTE IMMATURE GRANULOCYTES 0.18 10^3/uL (0.00-0.10); ADD DIFF? NO; ADD MORPH? NO; ADD SCAN? NO; ATYPICAL LYMPHOCYTE FLAG 0 (0-99); FRAGMENT RBC FLAG 0 (0-99); HEMATOCRIT 43.4 % (40.0-51.0); LEFT SHIFT FLG 10 (0-99); LIPEMIA HEMOLYSIS FLAG 90 (0-99); MEAN CELL HEMOGLOBIN 32.5 pg (27.9-34.1); MEAN CELL HEMOGLOBIN CONCENTR. 34.6 g/dL (32.4-36.7); MEAN CELL VOLUME 93.9 fL (81.5-99.8); MEAN PLATELET VOLUME 10.6 fL (8.7-11.7); PLATELET CLUMPS FLAG 10 (0-99); PLATELET COUNT 176 10^3/uL (150-400); RED BLOOD CELL COUNT 4.62 10^6/uL (4.40-6.38); RED CELL DISTRIBUTION WIDTH 13.1 % (11.5-15.2)
[2017-01-04 08:04] LABS: ALANINE AMINOTRANSFERASE 37 IU/L (21-72); ALKALINE PHOSPHATASE 48 IU/L (38-126); ANION GAP 10 mEq/L (8-16); ASPARTATE AMINOTRANSFERASE 19 IU/L (17-59); BILIRUBIN,TOTAL 1.5 mg/dL (0.1-1.4); CALCIUM 8.8 mg/dL (8.5-10.4); CARBON DIOXIDE 20 mEq/l (22-31); CHLORIDE 105 mEq/L (97-110); CREATININE 0.9 mg/dL (0.7-1.3); GLOMERULAR FILTRATION RATE > 60; GLUCOSE 103 mg/dL (70-100); SODIUM 135 mEq/L (134-144); TOTAL PROTEIN 5.8 g/dL (6.3-8.2)
[2017-01-04] MEDS: TAMSULOSIN HCL 0.4 MG CAP PO SCH ×3 (08:49→17:15)
[2017-01-04] MEDS ORDERED: TAMSULOSIN HCL 0.4 MG CAP PO SCH ×2 (09:00→15:24)
[2017-01-04] MEDS: CYANO/VITAMIN B12 1000 MCG TAB PO SCH (09:02)
[2017-01-04] MEDS: levETIRAcetam 250 MG TAB PO SCH ×2 (09:02→21:21)
[2017-01-04] MEDS: POLYETHYLENE GLYCOL 3350 17 GM PKT PO SCH (09:03)
[2017-01-04] MEDS: DEXAMETHASONE 2 MG TAB PO SCH (09:03)
[2017-01-04 09:08] LABS: COLOR PALE YELLOW; LEUKOCYTE ESTERASE,URINE NEGATIVE (NEGATIVE); NITRITE,URINE NEGATIVE (NEGATIVE)
[2017-01-04 09:18] LABS: WBC,URINE NONE SEEN /hpf (0-3)
--- NOTE | 2017-01-04 09:20 | SOAPPROG ---
SOAP Progress Note Assessment/Plan: Assessment: * Status post excision of glioblastoma multiforme on 12/27/2016 from the right parietal lobe. Physical therapy and occupational therapy to optimize mobility and activities of daily living. * Possible cognitive effects of surgery. Speech and language pathology to assess and treat. * Orthostatic hypotension noted after breakfast. Encourage PO hydration. If he remians hypotensive, will hydrate by IV. * Urinary retention with history of BPH. Will increase tamsulosin 0.4 mg q.day to 0.8 mg q.day with caution regarding orthostatic hypotension. Urinalysis with 1+ blood and 5-10 red blood cells, otherwise within normal limits and not consistent with UTI. Leukocytosis on CBC is consistent with corticosteroid treatment. * Postsurgical seizure risk. Continue dexamethasone to reduce any brain edema and continue levetiracetam. Duration of levetiracetam will be discussed further with Neurosurgery. * Abdominal discomfort. Resolved. Ensure normal bowel movements. * Dyslipidemia. Continue simvastatin. * Benign prostatic hypertrophy. Continue tamsulosin. * Emotional lability, likely adjustment disorder. Discussed low threshold for provision of antidepressants. Observe for better night sleep, and he will have evaluation and treatment per SENIOR RESEARCH MANAGER on the unit. FOLLOWUP: He is to see neurosurgeon, Dr. Jonas, within 1 week. Indications for this visit will be discussed with Dr. Jonas, and likely he will be scheduled for after he leaves inpatient rehabilitation. He is to see oncologist , Dr. Heraclio Valladares, within 2 weeks. His primary care provider is Dr. Mikael Tovar. 01/04/17 09:37 Subjective: Had frequent voiding overnight of small amounts. At 4:15 a.m. this morning he had a postvoid residual of 459 and after subsequent voiding at 5:45 a.m. this morning he had a postvoid residual of 352. Later this morning he was catheterized. After breakfast he was noted to have a low blood pressure in the 80s systolic and to have lightheadedness with standing. He reports he feels thirsty. He denies fevers or chills, cough or dyspnea. Other than frequent urination he does not have dysuria. He reports he had some lightheadedness with standing while he was in the hospital. Objective: Vital Signs Temp Pulse Resp BP Pulse Ox 36.6 C 52 L 16 132/76 H 96 01/04/17 06:10 01/04/17 06:10 01/04/17 06:10 01/04/17 06:10 01/04/17 06:10 Laboratory Results 01/04/17 06:00 01/04/17 06:00 01/03/17 01/04/17 01/05/17 05:59 05:59 05:59 Intake Total 550 Output Total 977 007 Balance -425 -275 Physical Exam - Physical Exam General Appearance: WD/WN, alert, no apparent distress Respiratory: normal breath sounds, No crackles, No rhonchi, No wheezing Cardiac/Chest: regular rate, rhythm, No edema, No bradycardia, No tachycardia, No diastolic murmur, No systolic murmur Abdomen: normal bowel sounds, non-tender, soft, No distended Skin: normal color, warm/dry Neuro/Psych: alert, normal mood/affect, oriented x 3, motor weakness (Left upper extremity ataxia) ICD10 Worksheet Patient Problems: Problems Problem Status Onset Scalp laceration Acute
[2017-01-04] MEDS ORDERED: NS 1,000 ML IV SCH (11:30)
[2017-01-04] MEDS ORDERED: FLU VACC QS 2017-18 (3YR+)/PF 0.5 ML SYR (FLUARIX QUAD) IM ONE (16:55)
[2017-01-04] MEDS: ATORVASTATIN CALCIUM 10 MG TAB PO SCH (21:21)
[2017-01-04] MEDS: ACETAMINOPHEN 325 MG TAB PO PRN (21:21)
[2017-01-05] MEDS ORDERED: DEXAMETHASONE 2 MG TAB PO SCH (09:00)
[2017-01-05] MEDS: TAMSULOSIN HCL 0.4 MG CAP PO SCH ×2 (09:31→20:03)
[2017-01-05] MEDS: CYANO/VITAMIN B12 1000 MCG TAB PO SCH (09:31)
[2017-01-05] MEDS: levETIRAcetam 250 MG TAB PO SCH ×2 (09:31→20:05)
[2017-01-05] MEDS: POLYETHYLENE GLYCOL 3350 17 GM PKT PO SCH (09:32)
--- NOTE | 2017-01-05 12:37 | SOAPPROG ---
SOAP Progress Note Assessment/Plan: Assessment: * Status post excision of glioblastoma multiforme on 12/27/2016 from the right parietal lobe. Physical therapy and occupational therapy to optimize mobility and activities of daily living. * Possible cognitive effects of surgery. Speech and language pathology to assess and treat. * Orthostatic hypotension noted after breakfast. Encourage PO hydration. Hydrated by IV yesterday 01/04/2017 with improvement. Bed was in reverse Trendelenburg overnight. Continue to encourage p.o. hydration and continue reverse Trendelenburg. Work on orthostatic tolerance with increased time upright.. * Urinary retention with history of BPH. Will increase tamsulosin 0.4 mg q.day to 0.8 mg q.day with caution regarding orthostatic hypotension. Urinalysis with 1+ blood and 5-10 red blood cells, otherwise within normal limits and not consistent with UTI. Leukocytosis on CBC is consistent with corticosteroid treatment. * Postsurgical seizure risk. Continue dexamethasone to reduce any brain edema and continue levetiracetam. Duration of levetiracetam will be discussed further with Neurosurgery. * Abdominal discomfort. Resolved. Ensure normal bowel movements. * Dyslipidemia. Continue simvastatin. * Emotional lability, likely adjustment disorder. Discussed low threshold for provision of antidepressants. Observe for better night sleep, and he will have evaluation and treatment per ACCOUNTS COLLECTOR on the unit. FOLLOWUP: Follow-up with Dr. Johnson, [facility], week of 01/09/17. Pollock can be removed 2 weeks post-op, 01/10/17. He is to see oncologist, Dr. Heraclio Valladares, within 2 weeks. Hoping to have genetic testing result on tumor for Tumor Board 01/17/17. His primary care provider is Dr. Mikael Tovar. 01/05/17 12:57 Subjective: Urinary retention again overnight with a postvoid residual greater than 600. Had catheterization; per nurse it caused him quite a bit of discomfort; he reports anxiety regarding the procedure is worsen the procedure itself. Overall in a good mood this morning. Was hypotensive again but not symptomatic. Nurse reports he had complained of pain between his eyebrows with standing up. Objective: Vital Signs Temp Pulse Resp BP Pulse Ox 36.9 C 51 L 16 135/79 H 95 01/05/17 07:38 01/05/17 07:38 01/05/17 07:38 01/05/17 07:38 01/05/17 07:38 Laboratory Results 01/04/17 06:00 01/04/17 06:00 01/04/17 01/05/17 01/06/17 05:59 05:59 05:59 Intake Total 550 2155 420 Output Total 973 3052 400 Balance -425 892 20 Physical Exam - Physical Exam General Appearance: WD/WN, alert, no apparent distress Respiratory: normal breath sounds, No crackles, No rhonchi, No wheezing Cardiac/Chest: regular rate, rhythm, No diastolic murmur, No systolic murmur Skin: normal color, warm/dry, other (Scalp incision C/D/I, fidel ) Neuro/Psych: alert, normal mood/affect, oriented x 3 ICD10 Worksheet Patient Problems: Problems Problem Status Onset Scalp laceration Acute
[2017-01-05] MEDS: CLOTRIMAZOLE 1% 15 GM CRTUBE TP SCH ×2 (14:45→20:04)
[2017-01-05] MEDS: ATORVASTATIN CALCIUM 10 MG TAB PO SCH (20:03)
[2017-01-06] MEDS: CYANO/VITAMIN B12 1000 MCG TAB PO SCH (08:17)
[2017-01-06] MEDS: TAMSULOSIN HCL 0.4 MG CAP PO SCH ×2 (08:17→19:55)
[2017-01-06] MEDS: levETIRAcetam 250 MG TAB PO SCH ×2 (08:17→19:54)
[2017-01-06] MEDS: CLOTRIMAZOLE 1% 15 GM CRTUBE TP SCH ×2 (09:33→22:52)
--- NOTE | 2017-01-06 13:29 | SOAPPROG ---
SOAP Progress Note Assessment/Plan: Assessment: * Status post excision of glioblastoma multiforme on 12/27/2016 from the right parietal lobe. Initial functional independence measure 78 on 01/06/2017. Transfers with contact guard assist. Ambulated 30 feet with a front wheeled walker and moderate assistance. Dresses upper body and lower body with minimal assistance has left neglect and decreased proprioception as well as ataxia. Continue physical therapy and occupational therapy to optimize mobility and activities of daily living. * Possible cognitive effects of surgery. Impaired executive function including organization, sequencing, and repair skills, and impulse control. Continue Speech and language pathology to assess and treat. * Orthostatic hypotension noted after breakfast. Improving. Encourage PO hydration. Hydrated by IV yesterday 01/04/2017 with improvement. Bed in reverse Trendelenburg overnight. Continue to encourage p.o. hydration and continue reverse Trendelenburg. Work on orthostatic tolerance with increased time upright.. * Urinary retention with history of BPH. Improving. Increased tamsulosin 0.4 mg q.day to 0.8 mg q.day starting 01/05/2017, with caution regarding orthostatic hypotension. Urinalysis with 1+ blood and 5-10 red blood cells, otherwise within normal limits and not consistent with UTI. Leukocytosis on CBC is consistent with corticosteroid treatment. * Postsurgical seizure risk. Continue dexamethasone to reduce any brain edema and continue levetiracetam. Duration of levetiracetam will be discussed further with Neurosurgery. * Abdominal discomfort. Resolved. Ensure normal bowel movements. * Dyslipidemia. Continue simvastatin. * Emotional lability, likely adjustment disorder. Discussed low threshold for provision of antidepressants. Observe for better night sleep, and he will have evaluation and treatment per MICROARRAY ANALYST on the unit. FOLLOWUP: Follow-up with Dr. Johnson, [facility], 01/11/2017 at 3:40 p.m.. [place] can be removed 2 weeks post-op, 01/10/17. He is to see oncologist , Dr. Contreras, 01/13/2017 at 10:00 a.m.. Hoping to have genetic testing result on tumor for Tumor Board 01/17/17. His primary care provider is Dr. Mikael Tovar. Attended staffing, 15 minutes. Discussed with case management, nursing, pharmacist, dietitian, PT, OT, FOOT PRESS OPERATOR. Patient is anxious to go home soon however given safety concerns and amount of assistance that is available at home, set discharge date for 01/13/2017. 01/06/17 13:24 Subjective: No complaints today. Slept well. Nurse reports episode of looking blue and rapid heart rate at about 3 in the morning which resolved spontaneously. He did not have hypotension. He does not recall the event. Objective: Vital Signs Temp Pulse Resp BP Pulse Ox 37.0 C 61 16 128/81 H 96 01/06/17 07:23 01/06/17 07:23 01/06/17 07:23 01/06/17 07:23 01/06/17 07:23 Laboratory Results 01/04/17 06:00 01/04/17 06:00 01/05/17 01/06/17 01/07/17 05:59 05:59 05:59 Intake Total 2158 960 795 Output Total 3050 1525 125 Balance -892 560 670 - Time Spent With Patient Time Spent With Patient: Greater than 35 minutes floor time today, including more than 50% of time in coordination of care during staffing meeting, and counseling patient. Physical Exam - Physical Exam General Appearance: WD/WN, alert, no apparent distress Respiratory: normal breath sounds, No crackles, No rhonchi, No wheezing Cardiac/Chest: regular rate, rhythm, No edema, No bradycardia, No tachycardia, No diastolic murmur, No systolic murmur Skin: normal color, warm/dry Neuro/Psych: alert, normal mood/affect, oriented x 3, abnormal gait (Observed walking with PT using front wheeled walker. Ataxic with left lower extremity with occasional scissoring and inversion at left ankle. Shows some left hemineglect regarding avoiding objects on his left.) ICD10 Worksheet Patient Problems: Problems Problem Status Onset Scalp laceration Acute
[2017-01-06] MEDS: ATORVASTATIN CALCIUM 10 MG TAB PO SCH ×2 (19:55→20:01)
[2017-01-06] MEDS: ACETAMINOPHEN 325 MG TAB PO PRN (23:33)
[2017-01-07] MEDS: oxyCODONE IR 5 MG TAB PO PRN ×2 (00:45→21:00)
[2017-01-07] MEDS: levETIRAcetam 250 MG TAB PO SCH ×2 (08:42→21:00)
[2017-01-07] MEDS: CYANO/VITAMIN B12 1000 MCG TAB PO SCH (08:43)
[2017-01-07] MEDS: TAMSULOSIN HCL 0.4 MG CAP PO SCH ×2 (08:43→21:01)
[2017-01-07] MEDS: ACETAMINOPHEN 325 MG TAB PO PRN ×2 (08:46→21:00)
[2017-01-07] MEDS: CLOTRIMAZOLE 1% 15 GM CRTUBE TP SCH ×2 (12:20→21:09)
--- NOTE | 2017-01-07 13:23 | SOAPPROG ---
SOAP Progress Note Assessment/Plan: Assessment: * Status post excision of glioblastoma multiforme on 12/27/2016 from the right parietal lobe. Initial functional independence measure 78 on 01/06/2017. Transfers with contact guard assist. Ambulated 30 feet with a front wheeled walker and moderate assistance; has ambulated 125' on 01/07/17. Dresses upper body and lower body with minimal assistance has left neglect and decreased proprioception as well as ataxia. Continue physical therapy and occupational therapy to optimize mobility and activities of daily living. * Possible cognitive effects of surgery. Impaired executive function including organization, sequencing, and repair skills, and impulse control. Continue Speech and language pathology to assess and treat. * Orthostatic hypotension noted after breakfast. Improving. Encourage PO hydration. Hydrated by IV yesterday 01/04/2017 with improvement. Bed in reverse Trendelenburg overnight. Continue to encourage p.o. hydration and continue reverse Trendelenburg. Work on orthostatic tolerance with increased time upright.. * Urinary retention with history of BPH. Improving. Increased tamsulosin 0.4 mg q.day to 0.8 mg q.day starting 01/05/2017, with caution regarding orthostatic hypotension. Urinalysis with 1+ blood and 5-10 red blood cells, otherwise within normal limits and not consistent with UTI. Leukocytosis on CBC is consistent with corticosteroid treatment. * Left calf tenderness. Get Doppler ultrasound today, rule out DVT. * Rash on back possible to pityriasis rosea. Treat symptomatically with corticosteroid cream. * Postsurgical seizure risk. Continue levetiracetam. Duration of levetiracetam will be discussed further with Neurosurgery. Dexamethasone discontinued 01/05/17. * Abdominal discomfort. Resolved. Ensure normal bowel movements. * Dyslipidemia. Continue simvastatin. * Emotional lability, likely adjustment disorder. Discussed low threshold for provision of antidepressants. Observe for better night sleep, and he will have evaluation and treatment per GORE MAKER on the unit. FOLLOWUP: Follow-up with Dr. Johnson, [facility], 01/11/2017 at 3:40 p.m.. [place] can be removed 2 weeks post-op, 01/10/17. He is to see oncologist , Dr. Contreras, 01/13/2017 at 10:00 a.m.. Hoping to have genetic testing result on tumor for Tumor Board 01/17/17. His primary care provider is Dr. Mikael Tovar. Patient is anxious to go home soon however given safety concerns and amount of assistance that is available at home, set discharge date for 01/13/2017. 01/07/17 13:13 Subjective: Itchy rash on back. Nurse reports that he has left calf pain. Otherwise doing well, ambulating greater distances. Objective: Vital Signs Temp Pulse Resp BP Pulse Ox 36.9 C 63 16 93/58 L 96 01/07/17 06:48 01/07/17 06:48 01/07/17 06:48 01/07/17 06:48 01/07/17 06:48 Laboratory Results 01/04/17 06:00 01/04/17 06:00 01/06/17 01/07/17 01/08/17 05:59 05:59 05:59 Intake Total 960 1710 360 Output Total 1525 1525 225 Balance -565 185 135 Physical Exam - Physical Exam General Appearance: WD/WN, alert, no apparent distress Respiratory: No respiratory distress, No accessory muscle use Skin: normal color, warm/dry, rash (Multiple 2 to 3 mm erythematous papules over back.) Neuro/Psych: alert, normal mood/affect, oriented x 3 ICD10 Worksheet Patient Problems: Problems Problem Status Onset Scalp laceration Acute
[2017-01-07] MEDS: APIXABAN 5 MG TAB PO SCH ×2 (17:08→21:01)
[2017-01-07] MEDS: HYDROCORTISONE 2.5% 30 GM CRTUBE TP SCH ×2 (17:12→22:03)
[2017-01-07] MEDS: ATORVASTATIN CALCIUM 10 MG TAB PO SCH (21:00)
[2017-01-08] MEDS: APIXABAN 5 MG TAB PO SCH ×2 (08:22→20:14)
[2017-01-08] MEDS: CYANO/VITAMIN B12 1000 MCG TAB PO SCH (08:24)
[2017-01-08] MEDS: TAMSULOSIN HCL 0.4 MG CAP PO SCH ×2 (08:26→20:14)
[2017-01-08] MEDS: levETIRAcetam 250 MG TAB PO SCH ×2 (08:26→20:14)
[2017-01-08] MEDS: CLOTRIMAZOLE 1% 15 GM CRTUBE TP SCH ×2 (08:43→20:19)
[2017-01-08] MEDS: HYDROCORTISONE 2.5% 30 GM CRTUBE TP SCH ×2 (08:43→20:18)
--- NOTE | 2017-01-08 12:05 | SOAPPROG ---
SOAP Progress Note Assessment/Plan: Assessment: * Status post excision of glioblastoma multiforme on 12/27/2016 from the right parietal lobe. Initial functional independence measure 78 on 01/06/2017. Transfers with contact guard assist. Ambulated 30 feet with a front wheeled walker and moderate assistance; has ambulated 125' on 01/07/17. Dresses upper body and lower body with minimal assistance has left neglect and decreased proprioception as well as ataxia. Continue physical therapy and occupational therapy to optimize mobility and activities of daily living. * Possible cognitive effects of surgery. Impaired executive function including organization, sequencing, and repair skills, and impulse control. Continue Speech and language pathology to assess and treat. * DVT. Ultrasound study done on right leg 01/07/2017, though it was ordered for left leg. Likely bilateral DVTs. No signs or symptoms of pulmonary embolus. Initiated treatment with apixaban 10 mg twice daily for 7 days and then will change to 5 mg twice daily. Need to ensure that his health insurance will cover apixaban. Expect treatment 3-6 months. * Orthostatic hypotension noted after breakfast. Improving, no longer symptomatic. Encourage PO hydration. Hydrated by IV yesterday 01/04/2017 with improvement. Bed in reverse Trendelenburg overnight. Continue to encourage p.o. hydration and continue reverse Trendelenburg. Work on orthostatic tolerance with increased time upright.. * Urinary retention with history of BPH. Improving. Increased tamsulosin 0.4 mg q.day to 0.8 mg q.day starting 01/05/2017, with caution regarding orthostatic hypotension. Urinalysis with 1+ blood and 5-10 red blood cells, otherwise within normal limits and not consistent with UTI. Leukocytosis on CBC is consistent with corticosteroid treatment. * Rash on back possible to pityriasis rosea. Treat symptomatically with corticosteroid cream. * Postsurgical seizure risk. Continue levetiracetam. Duration of levetiracetam will be discussed further with Neurosurgery. Dexamethasone discontinued 01/05/17. * Abdominal discomfort. Resolved. Ensure normal bowel movements. * Dyslipidemia. Continue simvastatin. * Emotional lability, likely adjustment disorder. Discussed low threshold for provision of antidepressants. Observe for better night sleep, and he will have evaluation and treatment per MEAT SEAFOOD ASSOCIATE on the unit. FOLLOWUP: Follow-up with Dr. Johnson, [facility], 01/11/2017 at 3:40 p.m.. [place] can be removed 2 weeks post-op, 01/10/17. He is to see oncologist , Dr. Contreras, 01/13/2017 at 10:00 a.m.. Hoping to have genetic testing result on tumor for Tumor Board 01/17/17. His primary care provider is Dr. Mikael Tovar. Patient is anxious to go home soon however given safety concerns and amount of assistance that is available at home, set discharge date for 01/13/2017. 01/08/17 12:03 Subjective: Fatigued after therapy in the morning and napping when 1st encounter. Insert family's questions regarding DVT. Revisited later in the day and he is alert and without complaint. Leg pain has resolved. No cough or dyspnea. Objective: Vital Signs Temp Pulse Resp BP Pulse Ox 36.4 C 57 L 16 137/83 H 99 01/08/17 08:00 01/08/17 08:00 01/08/17 08:00 01/08/17 08:00 01/08/17 08:00 Laboratory Results 01/04/17 06:00 01/04/17 06:00 01/07/17 01/08/17 01/09/17 05:59 05:59 05:59 Intake Total 1710 1210 600 Output Total 1525 1225 100 Balance 185 -15 500 Physical Exam - Physical Exam General Appearance: WD/WN, alert, no apparent distress Respiratory: normal breath sounds, No crackles, No rhonchi, No wheezing Cardiac/Chest: regular rate, rhythm, No edema Skin: normal color, warm/dry Neuro/Psych: alert, normal mood/affect, oriented x 3, abnormal gait (With front wheeled walker and assistance by PT. Tends to hyperextend left foot. [place] stride with right foot while weighting left foot.), motor weakness (Left upper and lower extremities) ICD10 Worksheet Patient Problems: Problems Problem Status Onset Scalp laceration Acute
[2017-01-08] MEDS: ATORVASTATIN CALCIUM 10 MG TAB PO SCH (20:14)
[2017-01-09] MEDS: APIXABAN 5 MG TAB PO SCH ×2 (08:11→20:32)
[2017-01-09] MEDS: levETIRAcetam 250 MG TAB PO SCH ×2 (08:11→20:32)
[2017-01-09] MEDS: CYANO/VITAMIN B12 1000 MCG TAB PO SCH (08:12)
[2017-01-09] MEDS: TAMSULOSIN HCL 0.4 MG CAP PO SCH ×2 (08:12→20:31)
[2017-01-09] MEDS: HYDROCORTISONE 2.5% 30 GM CRTUBE TP SCH (08:18)
[2017-01-09] MEDS: CLOTRIMAZOLE 1% 15 GM CRTUBE TP SCH ×2 (08:18→20:37)
[2017-01-09] MEDS ORDERED: HYDROCORTISONE 2.5% 30 GM CRTUBE TP PRN (09:24)
--- NOTE | 2017-01-09 09:25 | SOAPPROG ---
SOAP Progress Note Assessment/Plan: Assessment: * Status post excision of glioblastoma multiforme on 12/27/2016 from the right parietal lobe. Initial functional independence measure 78 on 01/06/2017. Transfers with contact guard assist. Ambulated 30 feet with a front wheeled walker and moderate assistance; ambulation improved to 125' on 01/07/17. Dresses upper body and lower body with minimal assistance has left neglect and decreased proprioception as well as ataxia. Continue physical therapy and occupational therapy to optimize mobility and activities of daily living. * Possible cognitive effects of surgery. Impaired executive function including organization, sequencing, and repair skills, and impulse control. Continue Speech and language pathology to assess and treat. * DVT. Ultrasound study done on right leg 01/07/2017, though it was ordered for left leg. Likely bilateral DVTs. No signs or symptoms of pulmonary embolus. Initiated treatment with apixaban 10 mg twice daily for 7 days and then will change to 5 mg twice daily. Need to ensure that his health insurance will cover apixaban. Expect treatment 3-6 months. * Orthostatic hypotension noted after breakfast. Improving, no longer symptomatic. Encourage PO hydration. Hydrated by IV yesterday 01/04/2017 with improvement. Bed in reverse Trendelenburg overnight. Continue to encourage p.o. hydration and continue reverse Trendelenburg. Work on orthostatic tolerance with increased time upright.. * Urinary retention with history of BPH. Improving. Increased tamsulosin 0.4 mg q.day to 0.8 mg q.day starting 01/05/2017, with caution regarding orthostatic hypotension. Urinalysis with 1+ blood and 5-10 red blood cells, otherwise within normal limits and not consistent with UTI. Leukocytosis on CBC is consistent with corticosteroid treatment. * Rash on back resolving with corticosteroid cream. Change topical corticosteroid to p.r.n. starting 01/09/2017. * Postsurgical seizure risk. Continue levetiracetam. Duration of levetiracetam will be discussed further with Neurosurgery. Dexamethasone discontinued 01/05/17. * Abdominal discomfort. Resolved. Ensure normal bowel movements. * Dyslipidemia. Continue simvastatin. * Emotional lability, likely adjustment disorder. Discussed low threshold for provision of antidepressants. Observe for better night sleep, and he will have evaluation and treatment per CLOTH FOLDER HAND on the unit. FOLLOWUP: Follow-up with Dr. Johnson, [facility], 01/11/2017 at 3:40 p.m.. [place] can be removed 2 weeks post-op, 01/10/17. He is to see oncologist , Dr. Contreras, 01/13/2017 at 10:00 a.m.. Hoping to have genetic testing result on tumor for Tumor Board 01/17/17. His primary care provider is Dr. Mikael Tovar. Patient is anxious to go home soon however given safety concerns and amount of assistance that is available at home, set discharge date for 01/13/2017. 01/09/17 09:22 Subjective: No complaints. Slept well. Has some left calf pain if he crosses his left lower leg over his right lower leg. Itching has improved. Objective: Vital Signs Temp Pulse Resp BP Pulse Ox 36.6 C 56 L 16 153/85 H 98 01/09/17 07:02 01/09/17 07:02 01/09/17 07:02 01/09/17 07:02 01/09/17 07:02 Laboratory Results 01/04/17 06:00 01/04/17 06:00 01/08/17 01/09/17 01/10/17 05:59 05:59 05:59 Intake Total 1210 1260 Output Total 1225 1600 200 Balance -15 -340 -200 Physical Exam - Physical Exam General Appearance: WD/WN, alert, no apparent distress Respiratory: No respiratory distress, No accessory muscle use Skin: normal color, warm/dry, rash (Rash on back has resolved. Erythematous patches on left medial proximal thigh are fading.), other (Scalp incision with fidel present, clean/dry/intact.) Neuro/Psych: alert, normal mood/affect, oriented x 3 ICD10 Worksheet Patient Problems: Problems Problem Status Onset Scalp laceration Acute
[2017-01-09] MEDS: FLUDROCORTISONE ACETATE 0.1 MG TAB PO SCH (11:55)
[2017-01-09] MEDS: ACETAMINOPHEN 325 MG TAB PO PRN (11:55)
[2017-01-09] MEDS: ATORVASTATIN CALCIUM 10 MG TAB PO SCH (20:32)
[2017-01-10] MEDS: oxyCODONE IR 5 MG TAB PO PRN (02:04)
[2017-01-10] MEDS: ACETAMINOPHEN 325 MG TAB PO PRN ×3 (02:06→14:55)
[2017-01-10] MEDS: APIXABAN 5 MG TAB PO SCH ×2 (09:19→20:34)
[2017-01-10] MEDS: FLUDROCORTISONE ACETATE 0.1 MG TAB PO SCH (09:20)
[2017-01-10] MEDS: TAMSULOSIN HCL 0.4 MG CAP PO SCH ×2 (09:20→20:34)
[2017-01-10] MEDS: levETIRAcetam 250 MG TAB PO SCH ×2 (09:20→20:34)
[2017-01-10] MEDS: CYANO/VITAMIN B12 1000 MCG TAB PO SCH (09:20)
[2017-01-10] MEDS: CLOTRIMAZOLE 1% 15 GM CRTUBE TP SCH ×2 (09:30→20:34)
--- NOTE | 2017-01-10 13:02 | SOAPPROG ---
SOAP Progress Note Assessment/Plan: Assessment: * Status post excision of glioblastoma multiforme on 12/27/2016 from the right parietal lobe. Initial functional independence measure 78 on 01/06/2017. Transfers with contact guard assist. Ambulated 30 feet with a front wheeled walker and moderate assistance; ambulation improved to 125' on 01/07/17. Dresses upper body and lower body with minimal assistance. Has left neglect and decreased proprioception as well as ataxia. Continue physical therapy and occupational therapy to optimize mobility and activities of daily living. * Possible cognitive effects of surgery. Impaired executive function including organization, sequencing, and repair skills, and impulse control. Continue Speech and language pathology. * DVT. Ultrasound study done on right leg 01/07/2017, though it was ordered for left leg. Likely bilateral DVTs. No signs or symptoms of pulmonary embolus. Initiated treatment with apixaban 10 mg twice daily for 7 days and then will change to 5 mg twice daily. Need to ensure that his health insurance will cover apixaban; discussed with 01/10/2017. Expect treatment 3-6 months. * Orthostatic hypotension noted after breakfast. Encourage PO hydration. Hydrated by IV 01/04/2017 with improvement. Bed in reverse Trendelenburg overnight. Work on orthostatic tolerance with increased time upright. Initiated fludrocortisone 01/09/2017. Continue to monitor. * Urinary retention with history of BPH. Improving. Increased tamsulosin 0.4 mg q.day to 0.8 mg q.day starting 01/05/2017, with caution regarding orthostatic hypotension. Urinalysis with 1+ blood and 5-10 red blood cells, otherwise within normal limits and not consistent with UTI. Leukocytosis on CBC is consistent with corticosteroid treatment. * Rash on back resolving with corticosteroid cream. Change topical corticosteroid to p.r.n. starting 01/09/2017. * Postsurgical seizure risk. Continue levetiracetam. Duration of levetiracetam will be discussed further with Neurosurgery. Dexamethasone discontinued 01/05/17. * Abdominal discomfort. Resolved. Ensure normal bowel movements. * Dyslipidemia. Continue simvastatin. * Emotional lability, likely adjustment disorder. Discussed low threshold for provision of antidepressants. Observe for better night sleep, and he will have evaluation and treatment per SMASH FIXER on the unit. FOLLOWUP: Follow-up with Dr. Johnson, [facility], 01/11/2017 at 3:40 p.m.. He is to see oncologist, Dr. Contreras, 01/13/2017 at 10:00 a.m.. Hoping to have genetic testing result on tumor for Tumor Board 01/17/17. His primary care provider is Dr. Mikael Tovar. Patient is anxious to go home soon however given safety concerns and amount of assistance that is available at home, set discharge date for 01/13/2017. 01/10/17 12:59 Subjective: Had orthostatic symptoms this morning with ADLs with OT. They have since resolved. Denies pain, cough, dyspnea, fevers, chills. Objective: Vital Signs Temp Pulse Resp BP Pulse Ox 36.5 C 56 L 17 134/87 H 97 01/10/17 08:00 01/10/17 08:00 01/10/17 08:00 01/10/17 08:00 01/10/17 08:00 Laboratory Results 01/04/17 06:00 01/04/17 06:00 01/09/17 01/10/17 01/11/17 05:59 05:59 05:59 Intake Total 1260 2240 436 Output Total 1600 1425 150 Balance -340 815 286 Physical Exam - Physical Exam General Appearance: WD/WN, alert, no apparent distress Respiratory: No respiratory distress, No accessory muscle use Skin: normal color, warm/dry Neuro/Psych: alert, normal mood/affect, oriented x 3 ICD10 Worksheet Patient Problems: Problems Problem Status Onset Scalp laceration Acute
[2017-01-10] MEDS ORDERED: SODIUM CL NASAL 45 ML BTL EACHNARE PRN (16:40)
[2017-01-10] MEDS: ATORVASTATIN CALCIUM 10 MG TAB PO SCH (20:34)
[2017-01-11] MEDS: oxyCODONE IR 5 MG TAB PO PRN ×2 (01:17→21:58)
[2017-01-11] MEDS: APIXABAN 5 MG TAB PO SCH (08:18)
[2017-01-11] MEDS: CYANO/VITAMIN B12 1000 MCG TAB PO SCH (08:19)
[2017-01-11] MEDS: levETIRAcetam 250 MG TAB PO SCH ×2 (08:20→21:57)
[2017-01-11] MEDS: FLUDROCORTISONE ACETATE 0.1 MG TAB PO SCH (08:20)
[2017-01-11] MEDS: TAMSULOSIN HCL 0.4 MG CAP PO SCH ×2 (08:21→21:57)
[2017-01-11] MEDS: CLOTRIMAZOLE 1% 15 GM CRTUBE TP SCH ×2 (09:14→21:00)
--- NOTE | 2017-01-11 14:24 | SOAPPROG ---
SOAP Progress Note Assessment/Plan: Assessment: * Status post excision of glioblastoma multiforme on 12/27/2016 from the right parietal lobe. Initial functional independence measure 78 on 01/06/2017. Transfers with contact guard assist. Ambulated 30 feet with a front wheeled walker and moderate assistance; ambulation improved to 125' on 01/07/17. Dresses upper body and lower body with minimal assistance. Has left neglect and decreased proprioception as well as ataxia. Continue physical therapy and occupational therapy to optimize mobility and activities of daily living. * Possible cognitive effects of surgery. Impaired executive function including organization, sequencing, and repair skills, and impulse control. Continue Speech and language pathology. * DVT. Ultrasound study done on right leg 01/07/2017, though it was ordered for left leg. Likely bilateral DVTs. No signs or symptoms of pulmonary embolus. Initiated treatment with apixaban 10 mg twice daily for 7 days; reports a high co-pay for this medication. We will initiate warfarin, pharmacy to manage ; co administer enoxaparin until INR is therapeutic. Expect treatment 3-6 months. * Orthostatic hypotension noted after breakfast. Encourage PO hydration. Hydrated by IV 01/04/2017 with improvement. Bed in reverse Trendelenburg overnight. Work on orthostatic tolerance with increased time upright. Initiated fludrocortisone 01/09/2017. No orthostatics symptoms 01/11/2017. Continue to monitor. * Urinary retention with history of BPH. Improving. Increased tamsulosin 0.4 mg q.day to 0.8 mg q.day starting 01/05/2017, with caution regarding orthostatic hypotension. Urinalysis with 1+ blood and 5-10 red blood cells, otherwise within normal limits and not consistent with UTI. Leukocytosis on CBC is consistent with corticosteroid treatment. * Rash on back resolving with corticosteroid cream. Change topical corticosteroid to p.r.n. starting 01/09/2017. * Rash on right upper arm 01/11/2017 appears consistent with insect envenomation. Continue to monitor. * Postsurgical seizure risk. Continue levetiracetam. Duration of levetiracetam will be discussed further with Neurosurgery. Dexamethasone discontinued 01/05/17. * Abdominal discomfort. Resolved. Ensure normal bowel movements. * Dyslipidemia. Continue simvastatin. * Emotional lability, likely adjustment disorder. Discussed low threshold for provision of antidepressants. Observe for better night sleep, and he will have evaluation and treatment per TECHNICAL PROGRAMS MANAGER on the unit. FOLLOWUP: Follow-up with Dr. Johnson, [facility], 01/11/2017 at 3:40 p.m.. He is to see oncologist, Dr. Contreras, 01/13/2017 at 10:00 a.m.. Hoping to have genetic testing result on tumor for Tumor Board 01/17/17. His primary care provider is Dr. Mikael Tovar. Patient is anxious to go home soon however given safety concerns and amount of assistance that is available at home, set discharge date for 01/13/2017. 01/11/17 14:20 Subjective: No complaints. Slept well. Not in pain. Nurse noted a red spot on his right upper arm which she reports has slightly itchy. Objective: Vital Signs Temp Pulse Resp BP Pulse Ox 36.7 C 64 16 103/60 95 01/11/17 06:10 01/11/17 06:10 01/11/17 06:10 01/11/17 07:08 01/11/17 06:10 Laboratory Results 01/04/17 06:00 01/04/17 06:00 01/10/17 01/11/17 01/12/17 05:59 05:59 05:59 Intake Total 2240 1590 354 Output Total 1425 1600 150 Balance 815 -10 204 Physical Exam - Physical Exam General Appearance: WD/WN, alert, no apparent distress Respiratory: No respiratory distress, No accessory muscle use Skin: normal color, warm/dry, other (Right medial upper arm with approximately 1 /2 cm circular slightly raised erythematous patch with slight depression at the center, nontender.) Neuro/Psych: alert, normal mood/affect, oriented x 3, abnormal gait (Observed with PT ascending and descending a curb step and ambulating back to his room. Has left foot drag, narrow base of support, with front wheeled walker and contact guard to minimal assistance per PT.), motor weakness (Left upper and lower extremities) ICD10 Worksheet Patient Problems: Problems Problem Status Onset Scalp laceration Acute
[2017-01-11] MEDS: WARFARIN SODIUM 5 MG TAB PO SCH ×2 (17:37→17:40)
[2017-01-11] MEDS ORDERED: ENOXAPARIN 40 MG/0.4 ML SYR SC SCH (21:00)
[2017-01-11] MEDS: ACETAMINOPHEN 325 MG TAB PO PRN (21:57)
[2017-01-11] MEDS: ENOXAPARIN 80 MG/0.8 ML SYR SC SCH (21:57)
[2017-01-11] MEDS: ATORVASTATIN CALCIUM 10 MG TAB PO SCH (22:07)
[2017-01-12 07:47] LABS: INR 1.22 (0.83-1.16); PROTIME(PATIENT) 15.4 SEC (12.0-15.0)
[2017-01-12] MEDS: ENOXAPARIN 80 MG/0.8 ML SYR SC SCH ×2 (07:56→20:30)
[2017-01-12] MEDS: CLOTRIMAZOLE 1% 15 GM CRTUBE TP SCH ×2 (07:59→20:30)
[2017-01-12] MEDS: levETIRAcetam 250 MG TAB PO SCH ×2 (08:51→20:30)
[2017-01-12] MEDS: FLUDROCORTISONE ACETATE 0.1 MG TAB PO SCH (08:51)
[2017-01-12] MEDS: CYANO/VITAMIN B12 1000 MCG TAB PO SCH (08:51)
[2017-01-12] MEDS: TAMSULOSIN HCL 0.4 MG CAP PO SCH ×2 (08:51→20:30)
--- NOTE | 2017-01-12 10:43 | SOAPPROG ---
SOAP Progress Note Assessment/Plan: Assessment: * Status post excision of glioblastoma multiforme on 12/27/2016 from the right parietal lobe. Initial functional independence measure 78 on 01/06/2017; decline to 76 on 01/12/17 with improved mobility but decrease in cognitive/ communication scores. Noted to be emotionally labile. Standby assist for bed mobility and for squat pivot transfer. Contact guard assist for sit to stand. Ambulated 75 feet with contact guard to minimal assist using a front wheeled walker. Minimal assistance for lower body dressing otherwise ADLs contact guard assist to standby assist decreased sensation in the left upper and lower extremity and decreased proprioception complicate mobility and ADLs. Continue physical therapy and occupational therapy to optimize mobility and activities of daily living. * Possible cognitive effects of surgery. Impaired executive function including organization, sequencing, and repair skills, and impulse control. Continue Speech and language pathology. * DVT. Ultrasound study done on right leg 01/07/2017, though it was ordered for left leg. Likely bilateral DVTs. No signs or symptoms of pulmonary embolus. Initiated treatment with apixaban 10 mg twice daily for 7 days; reports a high co-pay for this medication. We will initiate warfarin, pharmacy to manage ; co administer enoxaparin until INR is therapeutic. Expect treatment 3-6 months. * Orthostatic hypotension noted after breakfast. Symptoms resolved since initiating fludrocortisone 01/09/17. Encourage PO hydration. Hydrated by IV with improvement. Bed in reverse Trendelenburg overnight. Work on orthostatic tolerance with increased time upright. Continue to monitor. * Emotional lability. Generally appears in good spirits but also noted to have periods of crying possibly 1 more fatigued. Will initiate fluoxetine at 10 mg q.day and titrate if it is tolerated. * Urinary retention with history of BPH. Improving. Increased tamsulosin 0.4 mg q.day to 0.8 mg q.day starting 01/05/2017, with caution regarding orthostatic hypotension. Urinalysis with 1+ blood and 5-10 red blood cells, otherwise within normal limits and not consistent with UTI. Leukocytosis on CBC is consistent with corticosteroid treatment. * Rash on back resolving with corticosteroid cream. Change topical corticosteroid to p.r.n. starting 01/09/2017. * Rash on right upper arm 01/11/2017 appears consistent with insect envenomation. Continue to monitor. * Postsurgical seizure risk. Continue levetiracetam. Duration of levetiracetam will be discussed further with Neurosurgery. Dexamethasone discontinued 01/05/17. * Abdominal discomfort. Resolved. Ensure normal bowel movements. * Dyslipidemia. Continue simvastatin. * Emotional lability, likely adjustment disorder. Discussed low threshold for provision of antidepressants. Observe for better night sleep, and he will have evaluation and treatment per [facility] on the unit. FOLLOWUP: Follow-up with oncologist, Dr. Contreras, 01/13/2017 at 10:00 a.m.. Plan is to go ahead with chemotherapy and radiation. Patient and were told during neuro surgery follow-up on 01/11/2017 that clinical trials depending on genetic testing of the tumor are only being done for cancer recurrences. Hoping to have genetic testing result on tumor for Tumor Board 01/17/17. His primary care provider is Dr. Mikael Tovar. Attended staffing, 15 minutes. Discussed with case management, nursing, dietitian, PT, OT, CHOIR[employer]STER. Attended family conference with patient and present and 2 daughters by speaker phone. Continues to require more help than can provide at home. Mobility and ADLs are improving. Set discharge date for 01/20/2017. 01/12/17 11:35 Subjective: No complaints. Slept well. Reports he has left calf pain which she notices especially when staff reposition his feet on the wheelchair panels. No fevers, chills, cough, dyspnea. Pain is not severe enough to merit pain medication. Objective: Vital Signs Temp Pulse Resp BP Pulse Ox 36.6 C 60 14 110/68 94 01/12/17 07:22 01/12/17 07:22 01/12/17 07:22 01/12/17 07:22 01/12/17 07:22 Laboratory Results 01/04/17 06:00 01/04/17 06:00 01/11/17 01/12/17 01/13/17 05:59 05:59 05:59 Intake Total 1590 594 236 Output Total 1600 325 750 Balance -10 269 -514 PT 15.4 SEC (12.0-15.0) H 01/12/17 06:20 INR 1.22 (0.83-1.16) H 01/12/17 06:20 - Time Spent With Patient Time Spent With Patient: Greater than 35 minutes floor time today, including more than 50% of time in coordination of care during staffing meeting and counseling patient and family during family meeting. Physical Exam - Physical Exam General Appearance: WD/WN, alert, no apparent distress Respiratory: normal breath sounds, wheezing, No crackles, No rhonchi Cardiac/Chest: regular rate, rhythm, No edema, No diastolic murmur, No systolic murmur Skin: normal color, warm/dry, other (Erythematous patch on R medial upper arm slightly larger, approx 2 cm, NT.) Neuro/Psych: alert, normal mood/affect, oriented x 3, motor weakness (LUE, working with OT with hand putty exercise, with ataxia.) ICD10 Worksheet Patient Problems: Problems Problem Status Onset Scalp laceration Acute
[2017-01-12] MEDS: FLUoxetine 10 MG CAP PO SCH (13:34)
[2017-01-12] MEDS: SENNOSIDES/DOCUSATE SODIUM TAB PO PRN (15:05)
[2017-01-12] MEDS: POLYETHYLENE GLYCOL 3350 17 GM PKT PO PRN (15:05)
[2017-01-12] MEDS: WARFARIN SODIUM 5 MG TAB PO SCH (16:39)
[2017-01-12] MEDS: ATORVASTATIN CALCIUM 10 MG TAB PO SCH (20:59)
[2017-01-13 07:45] LABS: INR 1.51 (0.83-1.16); PROTIME(PATIENT) 18.2 SEC (12.0-15.0)
[2017-01-13] MEDS: FLUoxetine 10 MG CAP PO SCH (08:14)
[2017-01-13] MEDS: levETIRAcetam 250 MG TAB PO SCH ×2 (08:14→20:29)
[2017-01-13] MEDS: TAMSULOSIN HCL 0.4 MG CAP PO SCH ×2 (08:14→20:30)
[2017-01-13] MEDS: FLUDROCORTISONE ACETATE 0.1 MG TAB PO SCH (08:14)
[2017-01-13] MEDS: CYANO/VITAMIN B12 1000 MCG TAB PO SCH (08:14)
[2017-01-13] MEDS: CLOTRIMAZOLE 1% 15 GM CRTUBE TP SCH ×2 (08:38→20:34)
[2017-01-13] MEDS: ENOXAPARIN 80 MG/0.8 ML SYR SC SCH ×2 (08:38→20:31)
[2017-01-13] MEDS: WARFARIN SODIUM 5 MG TAB PO SCH (15:21)
--- NOTE | 2017-01-13 15:47 | SOAPPROG ---
SOAP Progress Note Assessment/Plan: Assessment: * Status post excision of glioblastoma multiforme on 12/27/2016 from the right parietal lobe. Initial functional independence measure 78 on 01/06/2017; decline to 76 on 01/12/17 with improved mobility but decrease in cognitive/ communication scores. Noted to be emotionally labile. Standby assist for bed mobility and for squat pivot transfer. Contact guard assist for sit to stand. Ambulated 75 feet with contact guard to minimal assist using a front wheeled walker. Minimal assistance for lower body dressing otherwise ADLs contact guard assist to standby assist decreased sensation in the left upper and lower extremity and decreased proprioception complicate mobility and ADLs. Continue physical therapy and occupational therapy to optimize mobility and activities of daily living. * Possible cognitive effects of surgery. Impaired executive function including organization, sequencing, and repair skills, and impulse control. Continue Speech and language pathology. * DVT. Ultrasound study done on right leg 01/07/2017, though it was ordered for left leg. Likely bilateral DVTs. No signs or symptoms of pulmonary embolus. Initiated treatment with apixaban 10 mg twice daily for 7 days; reports a high co-pay for this medication. Initiated warfarin, pharmacy to manage; co administer enoxaparin until INR is therapeutic. Expect treatment 3-6 months. * Orthostatic hypotension noted after breakfast. Symptoms resolved since initiating fludrocortisone 01/09/17. Encourage PO hydration. Hydrated by IV with improvement. Bed in reverse Trendelenburg overnight. Work on orthostatic tolerance with increased time upright. Continue to monitor. * Emotional lability. Generally appears in good spirits but also noted to have periods of crying possibly 1 more fatigued. Will initiate fluoxetine at 10 mg q.day and titrate if it is tolerated. * Urinary retention with history of BPH. Improving. Increased tamsulosin 0.4 mg q.day to 0.8 mg q.day starting 01/05/2017, with caution regarding orthostatic hypotension. Urinalysis with 1+ blood and 5-10 red blood cells, otherwise within normal limits and not consistent with UTI. Leukocytosis on CBC is consistent with corticosteroid treatment. * Rash on back resolving with corticosteroid cream. Change topical corticosteroid to p.r.n. starting 01/09/2017. * Rash on right upper arm 01/11/2017 appears consistent with insect envenomation. Continue to monitor. * Postsurgical seizure risk. Continue levetiracetam. Duration of levetiracetam will be discussed further with Neurosurgery. Dexamethasone discontinued 01/05/17. * Abdominal discomfort. Resolved. Ensure normal bowel movements. * Dyslipidemia. Continue simvastatin. FOLLOWUP: Patient and were told during neuro surgery follow-up on 2016 that clinical trials depending on genetic testing of the tumor are only being done for cancer recurrences. Hoping to have genetic testing result on tumor for Tumor Board 01/17/17. His primary care provider is Dr. Mikael Tovar. Continues to require more help than can provide at home. Mobility and ADLs are improving. Set discharge date for 01/17/2017. 01/13/17 15:44 Subjective: Feels fatigued. Had a full day at oncology including pre treatment evaluation. He reports that he will be starting chemotherapy and radiation on January 25. Objective: Vital Signs Temp Pulse Resp BP Pulse Ox 36.9 C 59 L 16 144/78 H 95 01/13/17 06:06 01/13/17 06:06 01/13/17 06:06 01/13/17 06:06 01/13/17 06:06 Laboratory Results 01/04/17 06:00 01/04/17 06:00 01/12/17 01/13/17 01/14/17 05:59 05:59 05:59 Intake Total 594 1154 500 Output Total 325 2200 300 Balance 269 -1046 200 PT 18.2 SEC (12.0-15.0) H 01/13/17 06:40 INR 1.51 (0.83-1.16) H 01/13/17 06:40 Physical Exam - Physical Exam General Appearance: WD/WN, alert, no apparent distress Respiratory: No respiratory distress, No accessory muscle use Skin: normal color, warm/dry Neuro/Psych: alert, normal mood/affect, oriented x 3 ICD10 Worksheet Patient Problems: Problems Problem Status Onset Scalp laceration Acute
[2017-01-13] MEDS: POLYETHYLENE GLYCOL 3350 17 GM PKT PO PRN (16:46)
[2017-01-13] MEDS: ATORVASTATIN CALCIUM 10 MG TAB PO SCH (20:30)
[2017-01-14 07:23] LABS: INR 1.96 (0.83-1.16); PROTIME(PATIENT) 22.4 SEC (12.0-15.0)
[2017-01-14] MEDS ORDERED: BISACODYL 10 MG SUPP PR PRN (08:43)
[2017-01-14] MEDS: FLUDROCORTISONE ACETATE 0.1 MG TAB PO SCH (09:30)
[2017-01-14] MEDS: levETIRAcetam 250 MG TAB PO SCH ×2 (09:31→20:31)
[2017-01-14] MEDS: FLUoxetine 10 MG CAP PO SCH (09:32)
[2017-01-14] MEDS: POLYETHYLENE GLYCOL 3350 17 GM PKT PO PRN (09:32)
[2017-01-14] MEDS: ENOXAPARIN 80 MG/0.8 ML SYR SC SCH ×2 (09:32→20:31)
[2017-01-14] MEDS: SENNOSIDES/DOCUSATE SODIUM TAB PO PRN (09:32)
[2017-01-14] MEDS: TAMSULOSIN HCL 0.4 MG CAP PO SCH ×2 (09:32→20:31)
[2017-01-14] MEDS: CYANO/VITAMIN B12 1000 MCG TAB PO SCH (09:32)
[2017-01-14] MEDS: CLOTRIMAZOLE 1% 15 GM CRTUBE TP SCH ×2 (09:33→22:54)
--- NOTE | 2017-01-14 11:16 | SOAPPROG ---
SOAP Progress Note Assessment/Plan: Assessment: 71 YO gentleman S/P craniotomy for GBM excision: * Status post excision of R parietal glioblastoma multiforme, 12/27/2016. Initial FIM 78 on 01/06/2017; declined to 76 on 01/12/17 with improved mobility but decrease in cognitive/communication scores. Noted to be emotionally labile. Standby assist for bed mobility and for squat pivot transfer. Contact guard assist for sit to stand. Ambulated 75 feet with contact guard to minimal assist using a front wheeled walker. Minimal assistance for lower body dressing otherwise ADLs contact guard assist to standby assist decreased sensation in the left upper and lower extremity and decreased proprioception complicate mobility and ADLs. Continue physical therapy and occupational therapy to optimize mobility and activities of daily living. * Constipation: primary concern today. Last BM was 01/09. NSG noted hard stool in rectum on insertion of suppository. Will try PO meds, supossitory and if necessary enema to gain success today. * Possible cognitive effects of surgery. Impaired executive function including organization, sequencing, and repair skills, and impulse control. Continue Speech and language pathology. * DVT. Likely bilateral DVTs. No signs or symptoms of pulmonary embolus. Cont warfarin, pharmacy to manage; co administer enoxaparin until INR is therapeutic. Expect treatment 3-6 months. * Orthostatic hypotension noted after breakfast. Symptoms resolved since initiating fludrocortisone 01/09/17. Encourage PO hydration. Hydrated by IV with improvement. Bed in reverse Trendelenburg overnight. Work on orthostatic tolerance with increased time upright. Continue to monitor. * Emotional lability. noted to have periods of crying. Dr Cat initiated fluoxetine at 10 mg q.day. * Urinary retention with history of BPH. Improving. Increased tamsulosin 0.4 mg q.day to 0.8 mg q.day starting 01/05/2017, with caution regarding orthostatic hypotension. Urinalysis with 1+ blood and 5-10 red blood cells, otherwise within normal limits and not consistent with UTI. * Leukocytosis on CBC is consistent with corticosteroid treatment. * Rash on back resolving with corticosteroid cream. Change topical corticosteroid to p.r.n. starting 01/09/2017. * Rash on right upper arm 01/11/2017 appears consistent with insect envenomation. Continue to monitor. * Postsurgical seizure PPx. Continue levetiracetam. Duration of levetiracetam will be discussed further with Neurosurgery. Dexamethasone discontinued . * Dyslipidemia. Continue simvastatin. FOLLOWUP: Patient and were told during neuro surgery follow-up on 2016 that clinical trials depending on genetic testing of the tumor are only being done for cancer recurrences. Hoping to have genetic testing result on tumor for Tumor Board 01/17/17. His primary care provider is Dr. Mikael Tovar. Continues to require more help than can provide at home. Mobility and ADLs are improving. Set discharge date for 01/17/2017. Plan: Cont rehab team treatment plan 01/14/17 11:09 Subjective: C/O discomfort 2/2 constipation Working on it all morning No F/C/CP/SOB/N/V/D Objective: Vital Signs Temp Pulse Resp BP Pulse Ox 36.7 C 73 16 101/60 97 01/14/17 10:04 01/14/17 08:00 01/14/17 08:00 01/14/17 08:00 01/14/17 08:00 Laboratory Results 01/04/17 06:00 01/04/17 06:00 01/13/17 01/14/17 01/15/17 05:59 05:59 05:59 Intake Total 1154 1140 360 Output Total 2200 900 Balance -1046 240 360 PT 22.4 SEC (12.0-15.0) H 01/14/17 06:10 INR 1.96 (0.83-1.16) H 01/14/17 06:10 Physical Exam - Physical Exam General Appearance: alert, moderate distress (constipated, fatigued) Respiratory: lungs clear Cardiac/Chest: regular rate, rhythm Neuro/Psych: alert, normal mood/affect, other (no acute changes) ICD10 Worksheet Patient Problems: Problems Problem Status Onset Scalp laceration Acute
[2017-01-14] MEDS ORDERED: BISACODYL 5 MG EC TAB PO ONE (11:26)
[2017-01-14] MEDS ORDERED: WARFARIN SODIUM 2.5 MG TAB PO ONE (16:00)
[2017-01-14] MEDS: ACETAMINOPHEN 325 MG TAB PO PRN (19:23)
[2017-01-14] MEDS: ATORVASTATIN CALCIUM 10 MG TAB PO SCH (20:31)
[2017-01-14] MEDS: SENNOSIDES/DOCUSATE SODIUM TAB PO SCH (20:31)
[2017-01-14] MEDS ORDERED: LORazepam 1 MG TAB PO ONE (21:00)
[2017-01-14] MEDS: PREPARATION H 51 GM CRTUBE PR PRN (23:01)
[2017-01-15 07:26] LABS: INR 2.7 (0.83-1.16)
[2017-01-15] MEDS: POLYETHYLENE GLYCOL 3350 17 GM PKT PO SCH (09:35)
[2017-01-15] MEDS: levETIRAcetam 250 MG TAB PO SCH (09:35)
[2017-01-15] MEDS: SENNOSIDES/DOCUSATE SODIUM TAB PO SCH ×2 (09:41→21:11)
[2017-01-15] MEDS: TAMSULOSIN HCL 0.4 MG CAP PO SCH ×2 (09:41→21:11)
[2017-01-15] MEDS: FLUoxetine 10 MG CAP PO SCH (09:41)
[2017-01-15] MEDS: CYANO/VITAMIN B12 1000 MCG TAB PO SCH (09:41)
[2017-01-15] MEDS: FLUDROCORTISONE ACETATE 0.1 MG TAB PO SCH (09:41)
[2017-01-15] MEDS: ENOXAPARIN 80 MG/0.8 ML SYR SC SCH ×2 (09:42→21:11)
[2017-01-15] MEDS: CLOTRIMAZOLE 1% 15 GM CRTUBE TP SCH ×2 (09:43→21:12)
[2017-01-15] MEDS: PREPARATION H 51 GM CRTUBE PR PRN ×2 (09:44→21:13)
--- NOTE | 2017-01-15 13:50 | SOAPPROG ---
SOAP Progress Note Assessment/Plan: Assessment: 71 YO gentleman S/P craniotomy for GBM excision: * Status post excision of R parietal glioblastoma multiforme, 12/27/2016. Initial FIM 78 on 01/06/2017; declined to 76 on 01/12/17 with improved mobility but decrease in cognitive/communication scores. Noted to be emotionally labile. Standby assist for bed mobility and for squat pivot transfer. Contact guard assist for sit to stand. Ambulated 75 feet with contact guard to minimal assist using a front wheeled walker. Minimal assistance for lower body dressing otherwise ADLs contact guard assist to standby assist decreased sensation in the left upper and lower extremity and decreased proprioception complicate mobility and ADLs. Continue physical therapy and occupational therapy to optimize mobility and activities of daily living. * Constipation: primary concern yesterday, consuming his time, energy and leaving him with headach and exhaustion. He responded to ativan to relax, slept well and awoke to a BIG BM this am. still tired but doing better today. * Postsurgical seizure D/O: Pt had witness seizure overnight. Seen to have rigidity of extremities and brief LOC. Resolved spontaneously. Probable post ictal fatigue this am. No focal changes to neuro exam. Increase levetiracetam. Duration of levetiracetam now anticipated to be indefinite. Initial SZ education provided to pt and . Recommend neuro follow up post D/C from rehab * Possible cognitive effects of surgery. Impaired executive function ( organization, sequencing, and repair skills, and impulse control). Continue Speech and language pathology. * DVT. Likely bilateral DVTs. No sx/sx of pulmonary embolus. Cont warfarin, pharmacy to manage; co administer enoxaparin until INR is therapeutic. Expect treatment 3-6 months. * Orthostatic hypotension: Symptoms resolved since initiating fludrocortisone . Encourage PO hydration. Hydrated by IV 01/04/2017 with improvement. Bed in reverse Trendelenburg overnight. Work on orthostatic tolerance with increased time upright. Continue to monitor. * Emotional lability. noted to have periods of crying. Dr Cat initiated fluoxetine at 10 mg q.day. * Urinary retention with history of BPH. Improving. Increased tamsulosin 0.4 mg q.day to 0.8 mg q.day starting 01/05/2017, with caution regarding orthostatic hypotension. Urinalysis with 1+ blood and 5-10 red blood cells, otherwise within normal limits and not consistent with UTI. * Leukocytosis on CBC is consistent with corticosteroid treatment. * Rash on back resolving with corticosteroid cream. Change topical corticosteroid to p.r.n. starting 01/09/2017. * Rash on right upper arm 01/11/2017 appears consistent with insect envenomation. Continue to monitor. * Dyslipidemia. Continue simvastatin. FOLLOWUP: Patient and were told during neuro surgery follow-up on 2016 that clinical trials depending on genetic testing of the tumor are only being done for cancer recurrences. Hoping to have genetic testing result on tumor for Tumor Board 01/17/17. His primary care provider is Dr. Mikael Tovar. Continues to require more help than can provide at home. Mobility and ADLs are improving. Set discharge date for 01/17/2017. Plan: Cont rehab team treatment plan 01/15/17 13:53 Subjective: Constipation resolved Had seizure overnight No F/C/CP/SOB/N/V/D/C Objective: Vital Signs Temp Pulse Resp BP Pulse Ox 36.8 C 62 16 103/66 89 L 01/15/17 06:36 01/15/17 06:36 01/15/17 06:36 01/15/17 06:36 01/15/17 06:36 Laboratory Results 01/04/17 06:00 01/04/17 06:00 01/14/17 01/15/17 01/16/17 05:59 05:59 05:59 Intake Total 1140 760 640 Output Total 900 740 350 Balance 240 20 290 PT 29.0 SEC (12.0-15.0) H 01/15/17 06:05 INR 2.70 (0.83-1.16) H 01/15/17 06:05 Physical Exam - Physical Exam General Appearance: alert, no apparent distress (Significant improvement in energy and disposition from yesterday when he was struugling with constipation) Neck: supple Respiratory: lungs clear Cardiac/Chest: regular rate, rhythm Skin: other (incision CD&I, underlying seroma VS CSF collection appears stable, possibly extended/increased due to valsalva maneuvers associated with constipation.) Neuro/Psych: abnormal gait (struggling more today with coordination per therapists. ), motor weakness (generally deconditioned but no focal motor deficits.), sensory deficit (L phil neglect and or decreased proprioception), other (no acute changes) ICD10 Worksheet Patient Problems: Problems Problem Status Onset Scalp laceration Acute
[2017-01-15] MEDS ORDERED: WARFARIN SODIUM 1 MG TAB PO ONE (16:00)
[2017-01-15] MEDS ORDERED: levETIRAcetam 500 MG TAB PO SCH (21:00)
[2017-01-15] MEDS: ATORVASTATIN CALCIUM 10 MG TAB PO SCH (21:10)
[2017-01-15] MEDS: ACETAMINOPHEN 325 MG TAB PO PRN (21:11)
[2017-01-15] MEDS: POLYETHYLENE GLYCOL 3350 17 GM PKT PO PRN (21:42)
[2017-01-16] MEDS: POLYETHYLENE GLYCOL 3350 17 GM PKT PO PRN (05:38)
[2017-01-16 07:45] LABS: INR 2.62 (0.83-1.16); PROTIME(PATIENT) 28.3 SEC (12.0-15.0)
[2017-01-16] MEDS: ENOXAPARIN 80 MG/0.8 ML SYR SC SCH (09:00)
[2017-01-16] MEDS: FLUDROCORTISONE ACETATE 0.1 MG TAB PO SCH (09:00)
[2017-01-16] MEDS: CYANO/VITAMIN B12 1000 MCG TAB PO SCH (09:00)
[2017-01-16] MEDS: FLUoxetine 10 MG CAP PO SCH (09:00)
[2017-01-16] MEDS ORDERED: levETIRAcetam 250 MG TAB PO SCH (09:00)
[2017-01-16] MEDS: SENNOSIDES/DOCUSATE SODIUM TAB PO SCH ×2 (09:01→20:33)
[2017-01-16] MEDS: POLYETHYLENE GLYCOL 3350 17 GM PKT PO SCH (09:01)
[2017-01-16] MEDS: TAMSULOSIN HCL 0.4 MG CAP PO SCH ×2 (09:01→20:33)
[2017-01-16] MEDS: CLOTRIMAZOLE 1% 15 GM CRTUBE TP SCH ×2 (09:14→20:37)
--- NOTE | 2017-01-16 11:57 | SOAPPROG ---
SOAP Progress Note Assessment/Plan: Assessment: * Status post excision of glioblastoma multiforme on 12/27/2016 from the right parietal lobe. Initial functional independence measure 78 on 01/06/2017; decline to 76 on 01/12/17 with improved mobility but decrease in cognitive/ communication scores. Noted to be emotionally labile. Standby assist for bed mobility and for squat pivot transfer. Contact guard assist for sit to stand. Ambulated 75 feet with contact guard to minimal assist using a front wheeled walker. Minimal assistance for lower body dressing otherwise ADLs contact guard assist to standby assist decreased sensation in the left upper and lower extremity and decreased proprioception complicate mobility and ADLs. Continue physical therapy and occupational therapy to optimize mobility and activities of daily living. * Possible cognitive effects of surgery. Impaired executive function including organization, sequencing, and repair skills, and impulse control. Continue Speech and language pathology. * Postsurgical seizure D/O: Pt had witness seizure overnight. Seen to have rigidity of extremities and brief LOC. Resolved spontaneously. Probable post ictal fatigue this am. No focal changes to neuro exam. Increase levetiracetam. Duration of levetiracetam now anticipated to be indefinite. Initial SZ education provided to pt and . Recommend neuro follow up post D/C from rehab Chronic/stable issues: * DVT. Ultrasound study done on right leg 01/07/2017, though it was ordered for left leg. Likely bilateral DVTs. No signs or symptoms of pulmonary embolus. Initiated treatment with apixaban 10 mg twice daily for 7 days; reports a high co-pay for this medication. Initiated warfarin, pharmacy to manage. DC enoxaparin 01/16/2017 as INR is now therapeutic times greater than 2 days.. Expect treatment 3-6 months. * Constipation resolved 01/15/17. Continue laxatives. * Orthostatic hypotension noted after breakfast. Symptoms resolved since initiating fludrocortisone 01/09/17. Encourage PO hydration. Hydrated by IV with improvement. Bed in reverse Trendelenburg overnight. Work on orthostatic tolerance with increased time upright. Continue to monitor. * Emotional lability. Generally appears in good spirits but also noted to have periods of crying especially when fatigued. Initiated fluoxetine at 10 mg q.day on 01/12/2017. * Urinary retention with history of BPH. Improving. Increased tamsulosin 0.4 mg q.day to 0.8 mg q.day starting 01/05/2017, with caution regarding orthostatic hypotension. Urinalysis with 1+ blood and 5-10 red blood cells, otherwise within normal limits and not consistent with UTI. Leukocytosis on CBC is consistent with corticosteroid treatment. * Rash on back resolving with corticosteroid cream. Change topical corticosteroid to p.r.n. starting 01/09/2017. * Rash on right upper arm 01/11/2017 appears consistent with insect envenomation. Continue to monitor. * Dyslipidemia. Continue simvastatin. FOLLOWUP: Patient and were told during neuro surgery follow-up on 2016 that clinical trials depending on genetic testing of the tumor are only being done for cancer recurrences. Hoping to have genetic testing result on tumor for Tumor Board 01/17/17. His primary care provider is Dr. Mikael Tovar. Mobility and ADLs are improving. Discharge home with tomorrow, 01/17/2017. 01/16/17 11:58 Subjective: Had episode of left hand shaking while he was showering today. Did not have lightheadedness and did not have low blood pressure when checked. No other symptoms consistent with seizure including no postictal state or loss of consciousness. Had a seizure with muscle rigidity followed by loss of consciousness on 02/14 and levetiracetam was increased from 750 mg twice daily to 750 mg the morning and 1000 mg in the evening. Constipation over the weekend was eventually relieved with laxatives and enemas etc. Objective: Vital Signs Temp Pulse Resp BP Pulse Ox 36.9 C 75 18 106/73 95 01/16/17 07:30 01/16/17 09:07 01/16/17 07:30 01/16/17 09:07 01/16/17 07:30 Laboratory Results 01/04/17 06:00 01/04/17 06:00 01/15/17 01/16/17 01/17/17 05:59 05:59 05:59 Intake Total 767 061 5033 Output Total 740 1450 1000 Balance 20 -650 40 PT 28.3 SEC (12.0-15.0) H 01/16/17 06:00 INR 2.62 (0.83-1.16) H 01/16/17 06:00 Physical Exam - Physical Exam General Appearance: WD/WN, alert, no apparent distress Respiratory: No respiratory distress, No accessory muscle use Skin: normal color, warm/dry Neuro/Psych: alert, normal mood/affect, oriented x 3, motor weakness (LUE) ICD10 Worksheet Patient Problems: Problems Problem Status Onset Scalp laceration Acute
[2017-01-16] MEDS ORDERED: WARFARIN SODIUM 3 MG TAB PO ONE (16:00)
[2017-01-16] MEDS ORDERED: WARFARIN SODIUM 2.5 MG TAB PO ONE (16:00)
[2017-01-16 20:22] VITALS: RESP 16
[2017-01-16] MEDS: levETIRAcetam 500 MG TAB PO SCH (20:33)
[2017-01-16] MEDS: ATORVASTATIN CALCIUM 10 MG TAB PO SCH (20:33)
[2017-01-17 05:57] VITALS: TEMP 98.4; O2SAT 94
[2017-01-17 07:47] LABS: INR 2.57 (0.83-1.16); PROTIME(PATIENT) 27.9 SEC (12.0-15.0)
[2017-01-17] MEDS: POLYETHYLENE GLYCOL 3350 17 GM PKT PO SCH (09:00)
[2017-01-17] MEDS: FLUoxetine 10 MG CAP PO SCH (09:01)
[2017-01-17] MEDS: FLUDROCORTISONE ACETATE 0.1 MG TAB PO SCH (09:01)
[2017-01-17] MEDS: levETIRAcetam 500 MG TAB PO SCH (09:01)
[2017-01-17] MEDS: SENNOSIDES/DOCUSATE SODIUM TAB PO SCH (09:02)
[2017-01-17] MEDS: CYANO/VITAMIN B12 1000 MCG TAB PO SCH (09:02)
[2017-01-17] MEDS: TAMSULOSIN HCL 0.4 MG CAP PO SCH (09:02)
[2017-01-17] MEDS: CLOTRIMAZOLE 1% 15 GM CRTUBE TP SCH (10:04)
[2017-01-17 10:09] VITALS: BP 100/60; PULSE 70
[2017-01-17] MEDS ORDERED: WARFARIN SODIUM 3 MG TAB PO ONE (15:00)
--- NOTE | 2017-01-18 00:31 | GDS ---
[f rep st] DISCHARGE SUMMARY ADMITTING DIAGNOSIS: Debility, status post craniotomy and excision of right parietal glioblastoma multiforme. DISCHARGE DIAGNOSES: 1. Debility, status post craniotomy and excision of right parietal glioblastoma multiforme. 2. Postsurgical seizure. 3. Deep vein thrombosis. 4. Orthostatic hypotension. CONSULTATIONS: None. PROCEDURES: He had ultrasound studies of his legs. COMPLICATIONS: Deep venous thrombosis. HISTORY/HOSPITAL COURSE: This patient came to [facility] inpatient rehabilitation from [facility] where he had had excision of a glioblastoma multiforme from his right parietal lobe. Post surgery, he had right upper and lower extremity weakness. There were minimal complications noted and he was participating in therapy and was ready for rehabilitation. He did well in rehabilitation. His initial functional independence measure was 78 on 01/06/2017, which is consistent with penitentiary level of function. He was requiring contact guard assist for transfers. He was able to ambulate 30 feet with a front-wheeled walker and moderate assistance. Ambulation improved to 125 feet as of 01/07/2017. He needed minimal assistance for dressing. He had left neglect and decreased proprioception and ataxia on the left. He had cognitive effects of his surgery with impaired executive function including organization, sequencing, and repair skills. He had reduced impulse control. His functional independence measure remained stable at 76 as of 01/12/2017. His mobility had improved, but he had decreases in scores for cognition and communication. He required standby assist for mobility. He required minimal assistance for lower body dressing but otherwise his activities of daily living were accomplished with contact guard assist to standby assist. It was noted that decreased sensation in the left upper and lower extremities and decreased proprioception complicated his mobility and activities of daily living. He had a witnessed seizure with rigidity of the extremities and brief loss of consciousness on 01/14/2017. He had been prescribed levetiracetam 750 mg b.i.d. during his stay at [facility]. This was increased to 1000 mg b.i.d. and he had no further seizure activity. He developed left calf pain. Ultrasound study was done on the right leg rather than the left leg on 01/07/2017, which showed deep venous thrombosis, so he likely had bilateral deep venous thromboses. He was begun on warfarin as well as enoxaparin. Enoxaparin was discontinued when he was therapeutic on the warfarin. He had orthostatic hypotension. This often interfered with his ability to do activities of daily living and to ambulate. It was most prominent in the mornings and improved later in the day. He received IV hydration, which did not resolve the issue. There was also urinary retention, so an alpha agonist was not an appropriate medication. He was on tamsulosin for the urinary retention. He was eventually begun on fludrocortisone 0.1 mg and generally had improvement in his symptoms, though on the morning of discharge, he had an episode of lightheadedness with standing once again. He had considerable emotional lability with periods of crying. He was begun on fluoxetine at 10 mg q. day on 01/12/2017. He had some improvement in his moods. He had urinary retention. He required catheterization for postvoid residual above 400 several times. He was on tamsulosin 0.4 mg. This was increased to 0.8 mg q. day on 01/05/2017. PHYSICAL EXAM: On the day of discharge. GENERAL: This is a well-nourished, well-developed man, cooperative and in no acute distress. VITAL SIGNS: In the morning, his blood pressure was 80/40. Later in the day, his blood pressure was 100/60 with a heart rate of 70, respiratory rate was 16, oxygen saturation was 94% on room air. Temperature was 36.9 degrees centigrade. HEART: There is a regular rate and rhythm with no murmurs, rubs, or gallops. LUNGS: Clear to auscultation bilaterally. ABDOMEN: Soft, nontender, nondistended with normoactive bowel sounds. EXTREMITIES: There is no cyanosis, clubbing, or edema. NEUROLOGIC: He is alert and oriented x3. Cranial nerves 2-12 are grossly intact. He has weakness in the left upper and lower extremities. However, he is able to ambulate with a front-wheeled walker and minimal assist. He tended to have an overly narrow gait with left foot and did better with a flashlight aimed at the floor for target foot placement. LABORATORY STUDIES: During his stay, CBC on 01/04/2017, was overall within normal limits, but for an elevated white blood cell count at 11.88. At that time, he was on a dexamethasone taper postsurgical which accounted for the elevated white count. Coagulation studies: His INR on 01/17/2017 was 2.57. Serum chemistry on 01/04/2017 revealed a slightly low carbon dioxide at 20 and a slightly high glucose at 103, likely due to dexamethasone. He had a mildly elevated total bilirubin at 1.5. His albumin was slightly low at 3. Otherwise , renal function and liver function and electrolytes were within normal limits. He had a urinalysis on 01/04/2017 due to his urinary retention. There was 1+ blood, which was likely due to catheterization, as well as 5-10 red blood cells. CONDITION UPON DISCHARGE: Good. ACTIVITY: Ad kira but he needs contact guard assistance for mobility and minimal assistance for dressing. DIET: Regular. FOLLOWUP: He has an appointment with his primary care provider, Dr. Mikael Tovar on 01/23/2017. He will see [facility] on 01/25/2017. He has appointments yet to be scheduled he and his will take care of with [facility] and with neurosurgeon, Dr. Jorge Johnson. He will continue home occupational therapy, physical therapy, and speech therapy. Additionally, he will have a nurse visit for blood draws for his INR. MEDICATIONS AT DISCHARGE: 1. Acetaminophen 650 mg p.o. q.4 hours p.r.n. 2. Fludrocortisone 0.1 mg p.o. q. day. 3. Fluoxetine 10 mg p.o. q. day. 4. Levetiracetam 1000 mg p.o. b.i.d. 5. Polyethylene glycol 17 g p.o. q. day. 6. Senna 1 p.o. b.i.d. 7. Sodium chloride nasal spray, and he was actually using a neti pot while on the unit. 8. Tamsulosin 0.4 mg p.o. b.i.d. 9. Warfarin 3 mg every Monday, Monday, and Monday and 4 mg every Monday, Monday, and Monday. 10. Fluticasone nasal spray. 11. Simvastatin 20 mg p.o. q.h.s. ISSUES TO BE ADDRESSED AT FOLLOWUP: 1. Cancer treatment. He intends to proceed with radiation and chemotherapy with [facility]. 2. Functional status. Continue therapies at home and he can follow up with his primary care provider. 3. Seizure disorder. He can have followup with Neurology as well as Neurosurgery. 4. Orthostatic hypotension of unclear etiology. He can follow up with his primary care provider and consider increase in the fludrocortisone. 5. Deep venous thrombosis, warfarin management per primary care. Duration likely 3-6 months versus indefinite if his thrombosis risk is considered to be elevated in the long-term due to his cancer. Copy requested to: [facility] Attention: Dr. Valladares and Dr. Ben Tovar [facility] /[id number] [id number]
== END 2017-01-17 15:30 | disposition home health service (06) | DRG 949 ==
LOC: BREH 16:22
PROVIDERS: ADMIT Internal Medicine; ATTEND Internal Medicine
PROC: F08Z7ZZ Vocational Activities and Functional Community or Work Reintegration Skills Treatment (ICD-10-PCS; principal; 2017-01-03)
PROC: F0636ZZ Communicative/Cognitive Integration Skills Treatment of Neurological System - Whole Body (ICD-10-PCS; principal; 2017-01-03)
PROC: F07M3ZZ Motor Function Treatment of Musculoskeletal System - Whole Body (ICD-10-PCS; principal; 2017-01-03)
DX: Z48.3 Aftercare following surgery for neoplasm (principal); C71.3 Malignant neoplasm of parietal lobe; G40.89 Other seizures; I82.431 Acute embolism and thrombosis of right popliteal vein; G31.84 Mild cognitive impairment of uncertain or unknown etiology; R10.11 Right upper quadrant pain; E78.5 Hyperlipidemia, unspecified; N40.0 Benign prostatic hyperplasia without lower urinary tract symptoms; I95.1 Orthostatic hypotension; Z91.81 History of falling
CPT/HCPCS: 92507-GN; 92522-GN; 97110-GO; 97112-GP; 97116-GP; 97161-GP; 97166-GO; 97530-GO; 97530-GP; 97532-GO; 97535-GO; 97542-GP; 99366-GO; G0008; J1650